=== PATIENT | female | born 1990 | race Caucasian/White ===

== ENCOUNTER 2019-09-03 13:07 | Outpatient (CLI) | payer SELFPAY ==
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
== END 2019-09-03 13:08 | disposition home or self-care (01) ==
LOC: RAD 13:10
PROVIDERS: PCP Family Medicine; Visit Provider Thoracic Surgery (Cardiothoracic Vascular Surgery)
DX: M79.606 Pain in leg, unspecified (principal)
CPT/HCPCS: 93970

== ENCOUNTER 2020-02-11 06:09 | Day surgery (SDC) | payer SELFPAY ==
[2020-02-11 05:57] VITALS: BP 118/85; PULSE 86; RESP 18; TEMP 36.4; O2SAT 100
[2020-02-11 06:19] VITALS: BMI 24.1
[2020-02-11] MEDS: diazePAM 5 mg Tablet 10 MG PO (06:48)
[2020-02-11 08:57] VITALS: BP 119/84; PULSE 85; RESP 18; TEMP 36.7; O2SAT 100
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
== END 2020-02-11 09:03 | disposition home or self-care (01) ==
PROVIDERS: PCP Family Medicine; Visit Provider Thoracic Surgery (Cardiothoracic Vascular Surgery)
DX: I87.2 Venous insufficiency (chronic) (peripheral) (principal); Z82.49 Family history of ischemic heart disease and other diseases of the circulatory system; F17.210 Nicotine dependence, cigarettes, uncomplicated
CPT/HCPCS: 12345; 36475; C1769; C1888; C1894; J7040; J7050

== ENCOUNTER 2020-02-18 10:16 | Outpatient (CLI) | payer SELFPAY ==
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
== END 2020-02-18 10:17 | disposition home or self-care (01) ==
PROVIDERS: PCP Family Medicine; Visit Provider Thoracic Surgery (Cardiothoracic Vascular Surgery)
DX: I83.90 Asymptomatic varicose veins of unspecified lower extremity (principal)
CPT/HCPCS: 93971

== ENCOUNTER 2022-09-14 09:34 | Outpatient (CLI) | payer MEDICAID, SELFPAY ==
--- NOTE | 2022-09-14 09:53 | MM_ITS ---
WS: [id number] DIAGNOSTIC BILATERAL DIGITAL BREAST TOMOSYNTHESIS MAMMOGRAPHY WITH CAD LEFT breast ultrasound, limited HISTORY: BREAST PAIN IN LEFT COMPARISON: None available. TECHNIQUE: Bilateral craniocaudad, mediolateral oblique, and mediolateral views are submitted with to mosynthesis and SM. Spot compression views LEFT CC and MLO. Computer aided detection utilized. Breast composition: The breasts are heterogeneously dense, which may obscure small masses. Dense fibr oglandular tissue in the posterior lateral LEFT breast seen best on the CC projection. There are no o ther areas of suspicious finding or calcification. LEFT breast ultrasound, limited. Ultrasound is directed to the area of pain in the upper outer quadrant and also from 1-4 o'clock. Den se fibroglandular tissue but no mass or shadowing. MM/[place] [id number] IMPRESSION: BI-RADS: 2-Benign FOLLOW UP: 1 Year Follow-up
== END 2022-09-14 09:35 | disposition home or self-care (01) ==
LOC: RAD 09:43
PROVIDERS: Visit Provider Registered Nurse
DX: N64.4 Mastodynia (principal); R92.2 Inconclusive mammogram
CPT/HCPCS: 76642; 77062; G0279

== ENCOUNTER → 2024-06-05 15:34 | Outpatient (BNVA) | payer MEDICAID, SELFPAY | PROVIDERS: Visit Provider Nurse Practitioner Women's Health | DX: Z01.419 Encounter for gynecological examination (general) (routine) without abnormal findings (principal) | CPT/HCPCS: 87624 ==

== ENCOUNTER → 2024-06-19 11:21 | Outpatient (BNVA) | payer MEDICAID, SELFPAY | PROVIDERS: Visit Provider Nurse Practitioner Women's Health | DX: D25.2 Subserosal leiomyoma of uterus (principal); R10.2 Pelvic and perineal pain | CPT/HCPCS: 76830 ==

== ENCOUNTER 2025-05-31 17:40 | Emergency (ER) | payer MEDICAID, SELFPAY ==
--- OUTSIDE RECORDS SUMMARY | 2025-05-24 06:09 | XMS_ITS | Encounter Summary ---
Author Organization [facility] Address [address] [place] [address] Care Team Providers [employer] Name Role Phone Talita Gutiérrez MD Primary Care Provider [phone] Reason for Visit * Reason Comments Palpitations Encounter Details Date Type Department Care Team (Late st Contact Info) Description 05/24/2025 6:09 AM DEVULCANIZER LOADER - 05/24/2025 8:32 AM [facility] Emergency [facility] Emergency Medicine [address] [place] [address] Cash Renee MD [address] [place] [phone] Palpitations (Primary Dx) Discharge Disposition: Home or Self Care Social History Tobacco Use Types Packs/Day Years Used Date Smoking Tobacco: Every Day Cigarettes 0.5 15 Smokeless Tobacco: Never Alcohol Use Standard Drinks/Week Comments No 0 (1 standard drink = 0.6 oz pur e alcohol) Food Insecurity Answer Date Recorded Do you find you are eating l ess than you should because you can t pay for food? No 05/24/2025 Transportation Needs Answer Date Record ed Have you gone without health care because you didn t have a way to get there? Or worry about transportation for future doctor visits, pickers material handlers medication, etc.? No 2024 Housing Stability Answer Date Recorded Do you worry you won t have a steady place to sleep or struggle to pay rent or mortgage? No 05/24/2025 Utility Needs Answer Date Recorded Do you have difficulty payin g for utility costs (electric, water or gas bills)? No 05/24/2025 Medication Needs Answer Date Recorded Have you skipped taking medi cation due to cost or worry you can t afford new medications? No 05/24/2025 Feeling Safe Answer Date Recorded Are you in a relationship wi th someone who hurts you emotionally and/or physically? No 05/24/2025 Comments No Sex and Gender Information Value Date Recorded Sex Assigned at Not on file Legal Sex Female 12:25 PM DEVULCANIZER LOADER Gender Identity Not on file Sexual Orientation Not on file documented as of this encounter Last Filed Vital Signs Vital Sign Reading Time Taken Comments Blood Pressure 110/70 05/24/2025 8:30 AM DEVULCANIZER LOADER Pulse 84 05/24/2025 8:30 AM DEVULCANIZER LOADER Temperature 36.4 C (97.6 F) 05/24/2025 6:09 AM DEVULCANIZER LOADER Respiratory Rate 16 05/24/2025 8:30 AM DEVULCANIZER LOADER Oxygen Saturation 99% 05/24/2025 8:30 AM DEVULCANIZER LOADER Inhaled Oxygen Concentration - - Weight 57.2 kg (126 lb 3.2 oz) 05/24/2025 6:09 A M DEVULCANIZER LOADER Height 165.1 cm (5' 5 ) 05/24/2025 6:09 AM DEVULCANIZER LOADER Body Mass Index 21 05/24/2025 6:09 AM DEVULCANIZER LOADER documented in this encounter Discharge Instructions * Discharge Instructions* Cash Renee MD - 05/24/2025 8:26 AM DEVULCANIZER LOADER You are seen in the ER today for palpitations. The exact cause of your symptoms cannot be known at this time however based on history physical exam labs and cardiac monitoring we see nothing life-threatening or conditions that require intervention at this time. I recommend follow-up with your PCP as further workup will be needed. If you develop shortness of breath chest pain lightheadedness, dizziness or fainting please return to the ER for further treatment evaluation. LCANIZER LOADER * Attachments The following attachments cannot be sent through Care Everywhere. * Cardiac Arrhythmia ([place]orese) * Palpitations ([place]orese) documented in this encounter Medications at Time of Discharge ALPRAZolam (Xanax) 0.5 mg tabletIndications :Anxiety state Take 1 Tablet (0.5 mg) by mouth 1 time daily as needed for Anxiety. 30 Tablet 05/27/2025 hydrOXYzine HCL (ATARAX) 10 mg tabletIndications :Anxiety state Take 1 Tablet (10 mg) by mouth 3 times daily as needed for Itching, Anxiety or Insomnia. 90 Tablet 1 05/23/2025 atenoloL (TENORMIN) 25 mg tablet Take 1 Tablet (25 mg) by mouth 2 times daily. 60 Tablet 05/22/2025 ondansetron (ZOFRAN ODT) 4 mg Tablet, Rapid Dissolve Take 1 Tablet (4 mg) by mouth every 8 hours as needed for Nausea/Emesis. Dissolve tablet on top of tongue, then swallow with saliva. 30 Tablet 1 05/16/2025 cefdinir (OMNICEF) 300 mg capsuleIndication s:Upper respiratory tract infection, unspecified type Take 1 Capsule (300 mg) by mouth every 12 hours for 10 days. 20 Capsule 05/16/2025 documented as of this encounter ED Notes * Lala Del Castillo RN - 05/24/2025 7:22 AM CST Rounded on patient to start IV. Patient requesting to use restroom. Patient stating she feels nauseated. Patient otherwise resting in bed with no other complaints. LCANIZER LOADER * Sonia Gandhi RN - 05/24/2025 6:18 AM CST Patient arrives POV ambulatory for c/o intermittent palpitations times 2 weeks. Patient has been seen in ED and by PCP. PCP started patient on 10mg daily of Hydroxyzine yesterday. Patient thinks atenolol is more beneficial but experiencing facial flushing with full dose. PCP wants patient to stop atenolol and try Hydroxyzine at this time. Patient afebrile, even and unlabored respirations, EKG performed by RT during triage. LCANIZER LOADER LCANIZER LOADER LCANIZER LOADER * Alexus Espinoza RCP - 05/24/2025 6:06 AM CST EKG completed. Results given to Dr. Vasques and scanned into Epic. LCANIZER LOADER * Cash Renee MD - 05/24/2025 6:02 AM CSTAssociated Order(s): EKG 12 lead 05/24/25 6:52 AM HISTORY OF PRESENT ILLNESS History of Present Illness This is a 34-year-old female presenting with palpitations. She has been experiencing intermittent episodes of tachycardia for the past 2 weeks, accompanied bynausea and general malaise. These episodes are particularly disruptive at night, often preventing her from sleeping. The duration of these episodes varies, with some lasting throughout the night. Shereports that her most recent episode occurred just prior to her arrival at the ER and resolved spontaneously after urination. She also reports low-grade fevers, chills, and tremors, even in the absence of cold exposure. Her highest recorded temperature was 100.2 degrees Fahrenheit. She did not haveany palpitations before 2 weeks ago. She recalls an illness approximately 3 weeks ago, from which she has not fully recovered. Her current symptoms began 2 weeks ago, following a brief period of improvement. She has not undergone Zio patch or Holter monitor testing but is scheduled for a monitor placement on Tuesday. She is requesting a prescription for nausea medication as Zofran has not been effective for her. She is also seeking advice on how to manage her symptoms, as they are significantly impacting her quality of life. She reports difficulty eating and subsequent weight loss. She is considering trying a different anxiety medication and expresses concern about potential addiction. She reports feeling mentally overwhelmed and physically unwell and is fearful of future syncopal episodes. She was prescribed hydroxyzine, which she believes exacerbated her symptoms. She was previously prescribedatenolol by Dr. Gonzales, which initially provided relief but was discontinued due to an adverse reaction characterized by facial flushing and itching. PAST MEDICAL HISTORY REVIEWED MEDICAL: Patient has a past medical history of Calculus of kidney, Depression, DIMPLE (generalized anxiety disorder), Headache, and Patient denies relevant medical history. SURGICAL: Patient has a past surgical history that includes tubal ligation; section; surgical other;pr rpr aa hernia 1st < 3 cm reducible (N/A, 01/11/2023); and breast augmentation. ALLERGIES Patient has no known allergies. PHYSICAL EXAM INITIAL VS BP: (!) 134/92 (05/24/25608), Heart Rate: 87 bpm (05/24/25608), Resp: 16 (05/24/25608), Pulse: 60 (05/24/25699), Temp: 97.6 ??F (36.4 ??C) (05/24/25608), Temp src: Tympanic (05/24/25608),SpO2: 100 % (05/24/25608), Height: 5' 5 (165.1 cm) (05/24/25608), Weight: 57.2 kg (126 lb 3.2 oz) (05/24/25608), BMI (Calculated): 20.98 (05/24/25608) Patient's last menstrual period was 05/13/2025 (exact date). Blood pressure 116/81, pulse 85, temperature 97.6 ??F (36.4 ??C), temperature source Tympanic, resp. rate 16, height 5' 5 (1.651 m), weight 57.2 kg (126 lb 3.2 oz), last menstrual period 05/13/2025,SpO2 99%, not currently . Physical Exam Constitutional: General: She is not in acute distress. Appearance: Normal appearance. She is normal weight. She is not ill-appearing, toxic-appearing or diaphoretic. HENT: Mouth/Throat: Mouth: Mucous membranes are moist. Pharynx: Oropharynx is clear. Eyes: General: No scleral icterus. Conjunctiva/sclera: Conjunctivae normal. Cardiovascular: Rate and Rhythm: Normal rate and regular rhythm. Pulses: Normal pulses. Heart sounds: Normal heart sounds. No murmur heard. No friction rub. No gallop. Pulmonary: Effort: Pulmonary effort is normal. Breath sounds: Normal breath sounds. No wheezing, rhonchi or rales. Musculoskeletal: General: Normal range of motion. Cervical back: Normal range of motion. Skin: General: Skin is warm and dry. Capillary Refill: Capillary refill takes less than 2 seconds. Coloration: Skin is not pale. Findings: No erythema or rash. Neurological: General: No focal deficit present. Mental Status: She is alert and oriented to person, place, and time. Psychiatric: Mood and Affect: Mood normal. Behavior: Behavior normal. Physical Exam Constitutional: No acute distress Cardiovascular: Heart rate consistent, no abnormalities observed on monitor DIAGNOSTICS LAB: CBC WITH DIFFERENTIAL - Abnormal Result Value WBC 7.9 RBC 4.42 HEMOGLOBIN 13.9 HEMATOCRIT 40.3 MCV 91.2 MCH 31.4 MCHC 34.5 RDW 12.8 RDW-STDEV 42.8 PLATELETS 183 MPV 11.3 NEUTROPHILS 74 (*) LYMPHOCYTES 18 (*) MONOCYTES 6 EOSINOPHILS 1 BASOPHILS 1 IMMATURE GRANULOCYTES 0 NEUTROPHIL ABSOLUTE 5.87 LYMPHOCYTE ABSOLUTE 1.44 MONOCYTE ABSOLUTE 0.47 (*) EOSINOPHIL ABSOLUTE 0.08 BASOPHILS ABSOLUTE 0.04 IMMATURE GRANULOCYTES ABSOLUTE 0.02 COMPREHENSIVE METABOLIC PANEL - Abnormal SODIUM 142 POTASSIUM 4.1 CHLORIDE 107 CO2 23 CALCIUM 9.0 BUN 6 CREATININE 0.66 GLUCOSE 82 TOTAL PROTEIN 6.3 (*) ALBUMIN 4.3 BILIRUBIN TOTAL 0.6 ALKALINE PHOSPHATASE 41 AST 16 ALT 8 GFR >60 ANION GAP 12 MAGNESIUM LEVEL - Normal MAGNESIUM 1.8 TROPONIN BASELINE, 5TH GEN - Normal TROPONIN T, BASELINE 5TH GEN <6 TROPONIN 2 HR, 5TH GEN RADIOLOGY: No orders to display EKG: Results Laboratory Studies Lab work is normal. Results independently interpreted by Cash Renee MD PROCEDURES EKG 12 lead Date/Time: 05/24/2025 6:52 AM Performed by: Cash Renee MD Authorized by: Cash Renee MD ECG interpreted by ED Physician in the absence of a supervisor rocket propellant plant: yes Rate: ECG rate assessment: age appropriate Rhythm: Rhythm Origin: sinus Rhythm morphology: narrow Nettie: QRS axis: Normal Intervals: normal QRSTT: QRSTT changes: No MEDICAL DECISION MAKING AND PLAN OF CARE Assessment & Plan Initial Assessment: 34-year-old female presenting with palpitations, nausea, and low-grade fever for 2 weeks. Symptoms include sporadic episodes of rapid heart rate, feeling ill, and chills. Differential Diagnosis: - Dysrhythmia: Potential cause of palpitations. Zio patch for further evaluation. - Viral infection: Possible cause of prolonged illness. No immediate intervention. - Anxiety: Possible contributor to symptoms. Consult primary care for alternative medications. ED Course: - Reviewed monitor data from past 20-30 minutes; no significant changes in heart rate or abnormalities. - Labs reviewed; results within normal limits. Final Assessment: Reviewed monitor data and labs; no significant findings. Symptoms suggest potential dysrhythmia, viral infection, or anxiety. No immediate interventions available. Clinical Impression: - Palpitations - Nausea - Low-grade fever Disposition: - Discharge: Home, advised to continue with Zio patch for further evaluation. Consult primary care for alternative anxiety medications. Try hydroxyzine during the day at half the dose. Return precautions given. - Follow-Up: Consult primary care for alternative anxiety medications. Continue with Zio patch. Patient Education: Advised on the use of Zio patch and potential causes of symptoms. Informed about the lack of immediate interventions and the importance of follow-up with primary care. Medical Decision Making Amount and/or Complexity of Data Reviewed Labs: ordered. ECG/medicine tests: ordered and independent interpretation performed. Risk Prescription drug management. Clinical Scoring & Consults Medications Administered During the ED Stay from 05/24/2025602 to 05/24/2025 0833 Date/Time Order Dose Route Action 05/24/2025 0758 DEVULCANIZER LOADER sodium chloride 0.9 % bolus solution 1,000 mL 0 mL IV Stopped 05/24/2025 0728 DEVULCANIZER LOADER sodium chloride 0.9 % bolus solution 1,000 mL 1,000 mL IV New Bag 05/24/2025 0727 DEVULCANIZER LOADER ondansetron (ZOFRAN) 4 mg/2 mL injection 4 mg 4 mg IV Given . New Prescriptions for this Encounter LAST VS BP: 116/81 (05/24/25814), Heart Rate: 86 bpm (05/24/25814), Resp: 16 (05/24/25814), Pulse: 85(05/24/25814), Temp: 97.6 ??F (36.4 ??C) (05/24/25608), Temp src: Tympanic (05/24/25608), SpO2: 99 % (05/24/25 0815) CLINICAL IMPRESSION Diagnosis Diagnosis Comment Added By Time Added Palpitations [R00.2] Cash Renee MD 05/24/2025 8:24 AM DISPOSITION, EDUCATION AND MEDICATION RECONCILIATION Medications reconciled. See after visit summary for patient education on discharged patients. ED Disposition ED Disposition Discharge Condition Stable User Cash Renee MD Date/Time TueMay 24, 2025 8:23 AM Comment -- LCANIZER LOADER documented in this encounter Miscellaneous Notes * Gen AI JB - GENERATIVE AI HANDOFF NOTE - 05/24/2025 9:23 AM CST ## ER_course: ## # DIAGNOSIS: Palpitations, with potential causes including dysrhythmia, viral infection, or anxiety. The patient, a 34-year-old female, presented with intermittent palpitations, nausea, and low-grade fever for the past 2 weeks. She experienced episodes of tachycardia, nausea, and general malaise, particularly disruptive at night. The patient reported a recent illness 3 weeks ago, from which she has not fully recovered. She was previously on atenolol, which was discontinued due to facial flushing and itching, and was started on hydroxyzine by her PCP, which she believes exacerbated her symptoms. # During the ER visit, the following abnormalities were noted: Elevated neutrophils (74%) and low lymphocytes (18%) in the CBC. The comprehensive metabolic panel showed a slightly low total protein (6.3). EKG showed a normal sinus rhythm with no significant changes. # Medications administered included ondansetron (Zofran) 4 mg IV for nausea and sodium chloride 0.9% bolus solution 1,000 mL IV. # Differential diagnoses at discharge included dysrhythmia, viral infection, and anxiety. ## Follow_up_orders: ## # The patient is advised to continue with the Zio patch for further evaluation of potential dysrhythmia. # Consult with primary care for alternative anxiety medications, as hydroxyzine may not be suitable. # Try hydroxyzine during the day at half the dose. # Return precautions were given, and the importance of follow-up with primary care was emphasized. ## Home_Situation: ## # No specific factors impairing follow-up care were noted in the ER documentation. Electronically signed by Interface, Mat Bach Loss Prevention Operations Manager Incoming at 05/24/2025 9:28 AM DEVULCANIZER LOADER documented in this encounter Plan of Treatment Not on file documented as of this encounter Procedures Procedure Name Priority Date/Time Associated Diagnosis Comments TROPONIN BASELINE, 5TH GEN Stat 05/24/2025 7:26 AM DEVULCANIZER LOADER CBC WITH DIFFERENTIAL Stat 05/24/2025 7:26 AM DEVULCANIZER LOADER MAGNESIUM LEVEL Stat 05/24/2025 7:26 AM DEVULCANIZER LOADER COMPREHENSIVE METABOLIC PANEL Stat 05/24/2025 7:26 AM DEVULCANIZER LOADER EKG 12-LEAD Stat 05/24/2025 6:52 AM DEVULCANIZER LOADER documented in this encounter Results * TROPONIN BASELINE, 5TH GEN (05/24/2025 7:26 AM DEVULCANIZER LOADER) TROPONIN T, BASELINE 5TH GEN <6 <=10 ng/L 05/24/2025 8:03 AM DEVULCANIZER LOADER [facility] Blood Venipuncture / Unknown 05/24/2025 7:26 AM DEVULCANIZER LOADER 05/24/2025 7:38 AM DEVULCANIZER LOADER Narrative [facility] - 05/24/2025 8:03 AM DEVULCANIZER LOADER Troponin Undetectable us Cash Renee MD CHEMISTRY ORDERABLES Final Result [facility] CLIA # [id number] [address] [place] [id number] * MAGNESIUM LEVEL (05/24/2025 7:26 AM DEVULCANIZER LOADER) MAGNESIUM 1.8 1.6 - 2.6 mg/dL 05/24/2025 8:03 AM DEVULCANIZER LOADER [facility] Blood Venipuncture / Unknown 05/24/2025 7:26 AM DEVULCANIZER LOADER 05/24/2025 7:38 AM DEVULCANIZER LOADER Cash Renee MD CHEMISTRY ORDERABLES Final Result [facility] CLIA # [id number] [address] [address] * (ABNORMAL) COMPREHENSIVE METABOLIC PANEL (05/24/2025 7:26 AM DEVULCANIZER LOADER) SODIUM 142 136 - 145 mmol/L 05/24/2025 8:03 AM [facility] POTASSIUM 4.1 3.5 - 5.1 mmol/L 05/24/2025 8:03 AM [facility] CHLORIDE 107 98 - 107 mmol/L 05/24/2025 8:03 AM [facility] CO2 23 22 - 29 mmol/L 05/24/2025 8:03 AM [facility] CALCIUM 9.0 8.6 - 10.0 mg/dL 05/24/2025 8:03 AM [facility] BUN 6 6 - 20 mg/dL 05/24/2025 8:03 AM [facility] CREATININE 0.66 0.51 - 0.95 mg/dL 05/24/2025 8:03 AM [facility] GLUCOSE 82 74 - 99 mg/dL 05/24/2025 8:03 AM [facility] TOTAL PROTEIN 6.3(L) 6.6 - 8.7 g/dL 05/24/2025 8:03 AM [facility] ALBUMIN 4.3 3.5 - 5.2 g/dL 05/24/2025 8:03 AM [facility] BILIRUBIN TOTAL 0.6 0.0 - 1.2 mg/dL 05/24/2025 8:03 AM [facility] ALKALINE PHOSPHATASE 41 35 - 104 U/L 05/24/2025 8:03 AM [facility] AST 16 0 - 35 U/L 05/24/2025 8:03 AM [facility] ALT 8 0 - 35 U/L 05/24/2025 8:03 AM [facility] GFR >60 >=60 mL/min/1.7 3 sq meter 05/24/2025 8:03 AM [facility] Comment:eGFR calculated with 2020 CKD-EPI equation. Vegetarian diet, extremely high or low muscle mass, and may affect results. Cystatin C with Glomerular Filtration Rate is a suitable alternative for these patients. ANION GAP 12 5 - 20 mmol/L 05/24/2025 8:03 AM [facility] Blood Venipuncture / Unknown 05/24/2025 7:26 AM DEVULCANIZER LOADER 05/24/2025 7:38 AM DEVULCANIZER LOADER Cash Renee MD CHEMISTRY ORDERABLES Final Result [facility] CLIA # [id number] [address] [place] [address] * (ABNORMAL) CBC WITH DIFFERENTIAL (05/24/2025 7:26 AM DEVULCANIZER LOADER) WBC 7.9 4.0 - 10.0 K/uL 05/24/2025 7:43 AM [facility] RBC 4.42 3.93 - 5.22 M/uL 05/24/2025 7:43 AM [facility] HEMOGLOBIN 13.9 11.2 - 15.7 g/dL 05/24/2025 7:43 AM [facility] HEMATOCRIT 40.3 34.1 - 44.9 % 05/24/2025 7:43 AM [facility] MCV 91.2 79.4 - 94.8 fL 05/24/2025 7:43 AM [facility] MCH 31.4 25.6 - 32.2 pg 05/24/2025 7:43 AM [facility] MCHC 34.5 32.2 - 35.5 g/dL 05/24/2025 7:43 AM [facility] RDW 12.8 11.0 - 14.5 % 05/24/2025 7:43 AM [facility] RDW-STDEV 42.8 36.9 - 56.9 fL 05/24/2025 7:43 AM [facility] PLATELETS 183 163 - 337 K/uL 05/24/2025 7:43 AM [facility] MPV 11.3 10.0 - 14.8 fL 05/24/2025 7:43 AM [facility] NEUTROPHILS 74(H) 34 - 71 % 05/24/2025 7:43 AM [facility] LYMPHOCYTES 18(L) 19 - 52 % 05/24/2025 7:43 AM [facility] MONOCYTES 6 5 - 13 % 05/24/2025 7:43 AM [facility] EOSINOPHILS 1 1 - 6 % 05/24/2025 7:43 AM [facility] BASOPHILS 1 0 - 1 % 05/24/2025 7:43 AM [facility] IMMATURE GRANULOCYTES 0 % 05/24/2025 7:43 AM [facility] NEUTROPHIL ABSOLUTE 5.87 1.56 - 6.13 K/uL 05/24/2025 7:43 AM [facility] LYMPHOCYTE ABSOLUTE 1.44 1.20 - 3.40 K/uL 05/24/2025 7:43 AM [facility] MONOCYTE ABSOLUTE 0.47(H) 0.24 - 0.36 K/uL 05/24/2025 7:43 AM [facility] EOSINOPHIL ABSOLUTE 0.08 0.04 - 0.36 K/uL 05/24/2025 7:43 AM [facility] BASOPHILS ABSOLUTE 0.04 0.01 - 0.08 K/uL 05/24/2025 7:43 AM [facility] IMMATURE GRANULOCYTES ABSOLUTE 0.02 K/uL 05/24/2025 7:43 AM [facility] Blood Venipuncture / Unknown 05/24/2025 7:26 AM DEVULCANIZER LOADER 05/24/2025 7:38 AM DEVULCANIZER LOADER Cash Renee MD HEMATOLOGY ORDERABLES Final Result [facility] CLIA # [id number] [address] [place] [id number] * EKG 12 lead (05/24/2025 6:52 AM DEVULCANIZER LOADER) Narrative Cash Renee MD - 05/24/2025 6:52 AM DEVULCANIZER LOADER Cash Renee MD 05/24/2025 8:33 AM EKG 12 lead Date/Time: 05/24/2025 6:52 AM Performed by: Cash Renee MD Authorized by: Cash Renee MD ECG interpreted by ED Physician in the absence of a supervisor rocket propellant plant: yes Rate: ECG rate assessment: age appropriate Rhythm: Rhythm Origin: sinus Rhythm morphology: narrow Nettie: QRS axis: Normal Intervals: normal QRSTT: QRSTT changes: No Cash Renee MD ECG ORDERABLES Final Result documented in this encounter Visit Diagnoses Diagnosis Palpitations- Primary documented in this encounter Administered Medications Inactive Administered Medications - up to 3 most recent administrations Medication Order MAR Action Action Date Dose Rate Site ondansetron (ZOFRAN) 4 mg/2 mL injection 4 mg 4 mg, IV, ONE TIME ONLY, 1 dose, On Tue05/24/25 at 0730, Routine Given 05/24/2025 7:27 AM DEVULCANIZER LOADER 4 mg sodium chloride 0.9 % bolus solution 1,000 mL 1,000 mL, IV, ONE TIME ONLY, 1 dose, On Tue05/24/25 at 0715, at 2,000 mL/hr, Administer over 30 Minutes, Routine New Bag 05/24/2025 7:28 AM DEVULCANIZER LOADER 1,000 mL 2000 mL/hr documented in this encounter Active and Recently Administered Medications Times are shown in DEVULCANIZER LOADER. Scheduled Medication Order 05/22/2025 05/23/2025 05/24/2025 ondansetron (ZOFRAN) 4 mg/2 mL injection 4 mg (COMPLETED) 4 mg, IV, ONE TIME ONLY, 1 dose, On Tue05/24/25 at 0730, Routine 0727 (Given - Provid er: Lala Del Castillo RN) sodium chloride 0.9 % bolus solution 1,000 mL (COMPLETED) 1,000 mL, IV, ONE TIME ONLY, 1 dose, On Tue05/24/25 at 0715, at 2,000 mL/hr, Administer over 30 Minutes, Routine 0728 (New Bag - Prov ider: Lala Del Castillo RN)[id number] (Stopped - Provider: Lala Del Castillo RN) documented in this encounter Care Teams [employer] Relationship Specialty Start Date End Date Talita Gutiérrez MD [address] [address] PCP - General Family Practice 01/10/24 documented as of this encounter
--- OUTSIDE RECORDS SUMMARY | 2025-05-27 14:57 | XMS_ITS | Encounter Summary ---
Author Organization [facility] Address [address] [place] [address] Care Team Providers Care Branch Logistics Supervisor Name Role Phone Talita Gutiérrez MD Primary Care Provider [phone] Reason for Referral * Cardiology Testing (Routine) - Closed Specialty Diagnoses / Procedures Referred By Contac t Referred To Contact Respiratory Therapy Diagnoses Syncope, unspecified syncope type Procedures CARDIAC EVENT MONITOR Poly Dorman FNP [address] [place] [address] Phone: tel: fax: [facility] Respiratory Therapy Services [place] [address] [address] [place] [address] Phone: tel: fax: Referral ID Status Reason Start Date Expiration Date V isits Requested Visits Authorized [id number] Closed [facility] CTS to Schedule 05/21/2025 06/21/2026 1 1 Y EQUIPMENT SALES ASSOCIATE Reason for Visit * Cardiology Testing (Routine) - Closed Specialty Diagnoses / Procedures Referred By Contac t Referred To Contact Respiratory Therapy Diagnoses Syncope, unspecified syncope type Procedures CARDIAC EVENT MONITOR Poly Dorman FNP [address] [place] [address] Phone: tel: fax: [facility] Res[facility] [place] [address] [place] [address] Phone: tel: fax: Referral ID Status Reason Start Date Expiration Date V isits Requested Visits Authorized [id number] Closed [facility] CTS to Schedule 05/21/2025 06/21/2026 1 1 Encounter Details Date Type Department Care Team (Latest Contact Info) Description 05/27/2025 2:57 PM HEAVY EQUIPMENT SALES ASSOCIATE - 05/27/2025 11:59 PM HEAVY EQUIPMENT SALES ASSOCIATE Hospital Encounter [facility] Res[facility] [place] [address] [place] [phone] Poly Dorman, HUMANE AGENT [address] [place] [phone] Discharge Disposition: Home or Self Care Social [...] worry about transportation for future doctor visits, cotton picker operator medication, etc.? No 2024 Housing Stability Answer [...] on file Legal Sex Female 12:25 PM HEAVY EQUIPMENT SALES ASSOCIATE Gender Identity Not on file Sexual Orientation Not on file documented as of this encounter Medications at Time of Discharge ALPRAZolam (Xanax) 0.5 mg tabletIndication s:Anxiety state Take 1 Tablet (0.5 mg) by mouth 1 time daily as needed for Anxiety. 30 Tablet 05/27/2025 hydrOXYzine HCL (ATARAX) 10 mg tabletIndication s:Anxiety state Take 1 Tablet (10 mg) by mouth 3 times daily as needed for Itching, Anxiety or Insomnia. 90 Tablet 1 05/23/2025 atenoloL (TENORMIN) 25 mg tablet Take 1 Tablet (25 mg) by mouth 2 times daily. 60 Tablet 05/22/2025 06/21/2025 ondansetron (ZOFRAN ODT) 4 mg Tablet, Rapid Dissolve Take 1 Tablet (4 mg) by mouth every 8 hours as needed for Nausea/Emesis. Dissolve tablet on top of tongue, then swallow with saliva. 30 Tablet 1 05/16/2025 documented as of this encounter Progress Notes * Mayuri Romano RCP - 05/27/2025 3:00 PM CST Event monitor and instructions given to the patient. The event monitor was registered to [employer], and set up was successful. The patch was applied to prepped skin without difficulty. Recording a symptom, charging the monitor/sensor and changing the patch was demonstrated. Craig number was given for any equipment needs. The patient understands to mail monitor back in 14 days. Results will be furnished to the ordering provider. SN: [id number] Y EQUIPMENT SALES ASSOCIATE documented in this encounter Plan of Treatment Not on file documented as of this encounter Visit Diagnoses Diagnosis Syncope, unspecified syncope type documented in this encounter Care Teams Branch Logistics Supervisor Relationship Specialty Start Date End Date Talita Gutiérrez MD [address] [address] PCP - General Family Practice 01/10/24 documented as of this encounter
--- OUTSIDE RECORDS SUMMARY | 2025-05-30 14:00 | XMS_ITS | Encounter Summary ---
Author Organization [facility] Address [address] [place] [address] Care Team Providers Care Flap Curer Name Role Phone Talita Gutiérrez MD Primary Care Provider Reason for Visit * Reason Comments Follow Up Nausea, fever, rapid heart rate Nausea Fever Encounter Details Date Type Department Care Team (Late st Contact Info) Description 05/30/2025 2:00 PM LIGHT AIR DEFENSE ARTILLERY CREWMEMBER Office Visit [facility] Family Medicine [address] [place] [phone] Poly Dorman, [facility] [address] [facility] [place] [address] Situational depression (Primary Dx) Social History Tobacco Use Types Packs/Day Years Used Date Smoking Tobacco: Every Day Cigarettes 0.5 15 Smokeless Tobacco: Never Tobacco Cessation:Ready to Q uit: No; Counseling Given: Yes Alcohol Use Standard Drinks/Week Comments No 0 [...] worry about transportation for future doctor visits, pick pulling machine operator medication, etc.? No 2024 Housing Stability [...] on file Legal Sex Female 12:25 PM LIGHT AIR DEFENSE ARTILLERY CREWMEMBER Gender Identity Not on file Sexual Orientation Not on file documented as of this encounter Last Filed Vital Signs Vital Sign Reading Time Taken Comments Blood Pressure 130/84 05/30/2025 2:27 PM LIGHT AIR DEFENSE ARTILLERY CREWMEMBER Pulse 98 05/30/2025 2:27 PM LIGHT AIR DEFENSE ARTILLERY CREWMEMBER Temperature 37.6 C (99.6 F) 05/30/2025 2:27 PM LIGHT AIR DEFENSE ARTILLERY CREWMEMBER Respiratory Rate 16 05/30/2025 2:27 PM LIGHT AIR DEFENSE ARTILLERY CREWMEMBER Oxygen Saturation 98% 05/30/2025 2:27 PM LIGHT AIR DEFENSE ARTILLERY CREWMEMBER Inhaled Oxygen Concentration - - Weight 56.6 kg (124 lb 12.8 oz) 05/30/2025 2:27 PM LIGHT AIR DEFENSE ARTILLERY CREWMEMBER Height 165.1 cm (5' 5 ) 05/30/2025 2:27 PM LIGHT AIR DEFENSE ARTILLERY CREWMEMBER Body Mass Index 20.77 05/30/2025 2:27 PM LIGHT AIR DEFENSE ARTILLERY CREWMEMBER documented in this encounter Plan of Treatment Not on file documented as of this encounter Visit Diagnoses Diagnosis Situational depression- Primary documented in this encounter Care Teams Flap Curer Relationship Specialty Start Date End Date Talita Gutiérrez MD [address] [facility] [address] [place] [address] PCP - General Family Practice 01/10/24 documented as of this encounter
--- OUTSIDE RECORDS SUMMARY | 2025-05-31 09:00 | XMS_ITS | Encounter Summary ---
Author Organization [facility] Address [address] [place] [address] Care Team Providers Care Returned Case Inspector Name Role Phone Talita Gutiérrez MD Primary Care Provider [phone] Reason for Referral * Radiology Services (Urgent) - Authorized Specialty Diagnoses / Procedures Referred By Contac t Referred To Contact Radiology Diagnoses Intermittent claudication Procedures US VENOUS DOPPLER LEG LEFT Poly Dorman FNP [address] [facility] [place] [address] Phone: tel: fax: [facility] Ultrasound [place] [address] [place] [address] Phone: tel: fax: Referral ID Status Reason Start Date Expiration Date V isits Requested Visits Authorized [id number] Authorized 05/31/2025 07/01/2026 1 1 SCIENTIST Reason for Visit * Reason Comments Pain Woke up during the n ight with kidney an back of left knee pain. Encounter Details Date Type Department Care Team (Late st Contact Info) Description 05/31/2025 9:00 AM LIFE SCIENTIST Office Visit [facility] Family Medicine [place] [place] [address] Poly Dorman FNP [address] [facility] [place] [address] Intermittent claudication (Primary Dx) Social History Tobacco Use Types [...] worry about transportation for future doctor visits, brain picker medication, etc.? No 2024 Housing Stability Answer [...] on file Legal Sex Female 12:25 PM LIFE SCIENTIST Gender Identity Not on file Sexual Orientation Not on file documented as of this encounter Last Filed Vital Signs Vital Sign Reading Time Taken Comments Blood Pressure 110/72 05/31/2025 8:59 AM LIFE SCIENTIST Pulse 99 05/31/2025 8:59 AM LIFE SCIENTIST Temperature 37.1 C (98.7 F) 05/31/2025 8:59 AM LIFE SCIENTIST Respiratory Rate 16 05/31/2025 8:59 AM LIFE SCIENTIST Oxygen Saturation 99% 05/31/2025 8:59 AM LIFE SCIENTIST Inhaled Oxygen Concentration - - Weight 56.5 kg (124 lb 9.6 oz) 05/31/2025 8:59 A M LIFE SCIENTIST Height 165.1 cm (5' 5 ) 05/31/2025 8:59 AM LIFE SCIENTIST Body Mass Index 20.73 05/31/2025 8:59 AM LIFE SCIENTIST documented in this encounter Plan of Treatment Scheduled Orders Name Type Priority Associated Diagnoses Orde r Schedule US VENOUS DOPPLER LEG LEFT Imaging Stat Intermittent claudication Expected: 05/31/2025, Expires: 05/31/2026 documented as of this encounter Visit Diagnoses Diagnosis Intermittent claudication- Primary Peripheral vascular disease, unspecified documented in this encounter Care Teams Returned Case Inspector Relationship Specialty Start Date End Date Talita Gutiérrez MD [address] [phone] PCP - General Family Practice 01/10/24 documented as of this encounter
--- OUTSIDE RECORDS SUMMARY | 2025-05-31 10:48 | XMS_ITS | Encounter Summary ---
Author Organization [facility] Address [address] [place] [address] Care Team Providers Care Museum Curator Name Role Phone Talita Gutiérrez MD Primary Care Provider [phone] Encounter Details Date Type Department Care Team (Late st Contact Info) Description 05/31/2025 10:48 AM [facility] Hospital Encounter [facility] Outpatient Laboratory Services [place] [address] [place] [phone] Ploy Dorman, [facility] [address] [place] [address] Arrived Social History Tobacco Use Types Packs/Day Years [...] worry about transportation for future doctor visits, hand picker medication, etc.? No 2024 Housing Stability [...] on file Legal Sex Female 12:25 PM SPONGE MAKER Gender Identity Not on file Sexual Orientation Not on file documented as of this encounter Plan of Treatment Not on file documented as of this encounter Visit Diagnoses Not on filedocumented in this encounter Care Teams Museum Curator Relationship Specialty Start Date End Date Talita Gutiérrez MD [address] [address] PCP - General Family Practice 01/10/24 documented as of this encounter
--- OUTSIDE RECORDS SUMMARY | 2025-05-31 17:49 | XMS_ITS | Encounter Summary ---
Author Organization [facility] Address [address] [place] [address] Care Team Providers Care Nursing Assistant Name Role Phone Juan Francisco Hernandez MD Primary Care Provider [phone] Encounter Details Date Type Department Care Team (Latest Contact Info) Description 06/02/2007 Outpatient [facility] [address] [place] [address] Connie Olivera, HEAD TURBINE OPERATOR [address] [place] [address] Unspecified Spontaneous without Mention of Complication (Primary Dx) Social History Tobacco Use Types Packs/Day Years Used Date Smoking Tobacco: Never Assessed Comments Unknown Sex and Gender Information Value Date Recorded Sex Assigned at Not on file Legal Sex Female 2:59 AM INTERFACE ANALYST Gender Identity Not on file Sexual Orientation Not on file documented as of this encounter Plan of Treatment Not on file documented as of this encounter Visit Diagnoses Diagnosis Unspecified spontaneous without mention of complication- Primary documented in this encounter Care Teams Nursing Assistant Relationship Specialty Start Date End Date Juan Francisco Hernandez MD [address] [place] [phone] PCP - General Family Practice 04/06/18 documented as of this encounter
--- OUTSIDE RECORDS SUMMARY | 2025-05-31 17:49 | XMS_ITS | Encounter Summary ---
Author Organization [facility] Address [address] [place] [address] Care Team Providers Care Lead Warehouse Associate Name Role Phone Juan Francisco Hernandez MD Primary Care Provider [phone] Encounter Details Date Type Department Care Team (Latest Contact Info) Description 10/18/2007 Outpatient Historical [facility] Family Medicine- [place] [address] [place] [phone] Ryley Dias NP NO ADDRESS ON FILE Routine Gynecological Examination Social History Tobacco Use Types Packs/Day Years Used Date Smoking Tobacco: Never Assessed Comments Unknown Sex and Gender Information Value Date Recorded Sex Assigned at Not on file Legal Sex Female 2:59 AM FRAME NAILER Gender Identity Not on file Sexual Orientation Not on file documented as of this encounter Plan of Treatment Not on file documented as of this encounter Procedures Procedure Name Priority Date/Time Associated Diagnosis Comments GC, GENITAL Routine 10/17/2007 2:50 PM CDT CHLAMYDIA, GENITAL Routine 10/17/2007 2: 50 PM CDT PATHOLOGY Routine 10/17/2007 6:07 AM CDT documented in this encounter Results * GC DNA AMPLIFICATION (10/17/2007 2:50 PM CDT) FINAL REPORT DNA Amplification Assay: negative for Neisseria gonorrhoeae This procedure is approved for testing only on endocervical and male urethral swab specimens and male urine. The use of specimens from any other body site has not been validated. INTERFACE SYSTEM Specimen from genital system (specimen) 10/17/2007 2:50 PM CDT 10/19/2007 2:29 PM CDT Ryley Dias MICROBIOLOGY - GENERAL ORDER FABIEN Final Result Performing Organization Address [facility] Phone Number INTERFACE SYSTEM Refer to clinic/hospital department * CHLAMYDIA DNA AMPLIFICATION (10/17/2007 2:50 PM CDT) Pathologist [facility] FINAL REPORT DNA Amplification Assay: negative for Chlamydia trachomatis * This procedure is approved for testing only on endocervical and male urethral swab specimens and urine. The use of specimens from any other body site has not been validated. INTERFACE SYSTEM Specimen from genital system (specimen) 10/17/2007 2:50 PM CDT 10/19/2007 2:29 PM CDT us Ryley Dias NP MICROBIOLOGY - GENERAL ORDER FABIEN Final Result Performing Organization Address [facility] Phone Number INTERFACE SYSTEM Refer to clinic/hospital department * PATHOLOGY (10/17/2007 6:07 AM CDT) PATHOLOGY/CY TOLOGY REPORT [facility] Anatomic Pathology Dept [facility] [address] Patient: MARTI STEWART Accn No: [id number] Collected: 10/17/2007 6:07:00 AM CYTOLOGY CHIEF DEPUTY CLERK/BAILIFF FINAL REPORT - - FIRE PREVENTION CAPTAIN PAP History Specimen Source: Endocervical/Cervic al LMP: 09/23/07 Last Pap Date: 2005.31 Specimen Adequacy Satisfactory for interpretation. The smear shows sufficient numbers of endocervical or metaplastic cells. Diagnosis NEGATIVE FOR INTRAEPITHELIAL LESION OR MALIGNANCY. Shift in ida suggestive of bacterial vaginosis. Poly Packer And Heat Sealer SFF 10/19/07 Completed by: Rosie Schaffer (ASCP) (Electronically signed by) 10/19/07 Additional Diagnosis Inflammatory changes present Comment Routine follow-up is suggested. Important Info About Pap Smears HPV Testing off the Thin Prep vial can be done as a means of further evaluating a Thin Prep Report. For information about ordering the HPV test, phone Cytology at . Treatment or follow-up recommendations (if any) that are considered within this report are based upon general recommendations as contained in 2001 Consensus Guidelines For Cervical Cytological Abnormalities LUIS ANTONIO: November 08, 2001, and are provided as a general guideline rather than as a specific recommendation. Final decisions about the most appropriate treatment and follow-up should be made on an individualized basis by the treating physician in consultation with his/her patient. INTERFACE SYSTEM 10/17/2007 6:07 AM CDT Ryley Dias NP PATHOLOGY/CYTOLOGY ORDERABLE S Final Result INTERFACE SYSTEM Refer to clinic/hospital department documented in this encounter Visit Diagnoses Diagnosis Routine gynecological examination documented in this encounter Care Teams Lead Warehouse Associate Relationship Specialty Start Date End Date Juan Francisco Hernandez MD [address] [place] [address] PCP - General Family Practice 04/06/18 documented as of this encounter
--- OUTSIDE RECORDS SUMMARY | 2025-05-31 17:49 | XMS_ITS | Encounter Summary ---
Author Organization [facility] Address [address] [place] [address] Care Team Providers Care Teacher Of The Handicapped Name Role Phone Juan Francisco Hernandez MD Primary Care Provider [phone] Encounter Details Date Type Department Care Team (Latest Contact Info) Description 04/28/2006 Outpatient [facility] Medicine [address] [address] Sarah Lee MD NO ADDRESS ON FILE Routine Gynecological Examination (Primary Dx); Unspecified Vaginitis and Vulvovaginitis; Unspecified Contraceptive Management Social History Tobacco Use Types Packs/Day Years Used Date Smoking Tobacco: Never Assessed Comments Unknown Sex and Gender Information Value Date Recorded Sex Assigned at Not on file Legal Sex Female 2:59 AM TOLL COLLECTOR SUPERVISOR Gender Identity Not on file Sexual Orientation Not on file documented as of this encounter Plan of Treatment Not on file documented as of this encounter Visit Diagnoses Diagnosis Routine gynecological examination- Primary Vaginitis and vulvovaginitis, unspecified Unspecified contraceptive management documented in this encounter Care Teams Teacher Of The Handicapped Relationship Specialty Start Date End Date Juan Francisco Hernandez MD [address] [address] PCP - General Family Practice 04/06/18 documented as of this encounter
--- OUTSIDE RECORDS SUMMARY | 2025-05-31 17:49 | XMS_ITS | Encounter Summary ---
Author Organization [facility] Address [address] [place] [address] Care Team Providers Care Hoseman Name Role Phone Juan Francisco Hernandez MD Primary Care Provider [phone] Encounter Details Date Type Department Care Team (Latest Contact Info) Description 03/28/2007 Outpatient Historical [facility] Family Medicine- [place] [address] [place] [phone] Mohamud Quinteros PA NO ADDRESS ON FILE Viral Infection (Primary Dx) Social History Tobacco Use Types Packs/Day Years Used Date Smoking Tobacco: Never Assessed Comments Unknown Sex and Gender Information Value Date Recorded Sex Assigned at Not on file Legal Sex Female 2:59 AM CARPET WEAVER Gender Identity Not on file Sexual Orientation Not on file documented as of this encounter Plan of Treatment Not on file documented as of this encounter Visit Diagnoses Diagnosis Unspecified viral infection, in conditions classified elsewhere and of unspecified site- Primary documented in this encounter Care Teams Hoseman Relationship Specialty Start Date End Date Juan Francisco Hernandez MD [address] [facility] [address] [place] [address] PCP - General Family Practice 04/06/18 documented as of this encounter
--- OUTSIDE RECORDS SUMMARY | 2025-05-31 17:50 | XMS_ITS | Encounter Summary ---
Author Organization [facility] Address [address] [place] [address] Care Team Providers Care Optometric Technician Name Role Phone Juan Francisco Hernandez MD Primary Care Provider [phone] Encounter Details Date Type Department Care Team (Latest Contact Info) Description 06/27/2006 Outpatient Historical [facility] Medicine [place] [address] [phone] Ryley Dias NP NO ADDRESS ON FILE Acute Sinusitis, Unspecified (Primary Dx); Unspecified Asthma Social History Tobacco Use Types Packs/Day Years Used Date Smoking Tobacco: Never Assessed Comments Unknown Sex and Gender Information Value Date Recorded Sex Assigned at Not on file Legal Sex Female 2:59 AM VICE PRESIDENT OF NURSING Gender Identity Not on file Sexual Orientation Not on file documented as of this encounter Plan of Treatment Not on file documented as of this encounter Visit Diagnoses Diagnosis Acute sinusitis, unspecified- Primary Unspecified asthma(493.90) Unspecified asthma documented in this encounter Care Teams Optometric Technician Relationship Specialty Start Date End Date Juan Francisco Hernandez MD [address] [phone] PCP - General Family Practice 04/06/18 documented as of this encounter
--- OUTSIDE RECORDS SUMMARY | 2025-05-31 17:50 | XMS_ITS | Encounter Summary ---
Author Organization [facility] Address [address] [place] [address] Care Team Providers Care Nail Cutter Name Role Phone Juan Francisco Hernandez MD Primary Care Provider [phone] Encounter Details Date Type Department Care Team (Latest Contact Info) Description 06/24/2006 Outpatient [facility] Medicine [address] [address] Ryley Dias NP NO ADDRESS ON FILE Acute Sinusitis, Unspecified (Primary Dx); Acute Bronchitis Social History Tobacco Use Types Packs/Day Years Used Date Smoking Tobacco: Never Assessed Comments Unknown Sex and Gender Information Value Date Recorded Sex Assigned at Not on file Legal Sex Female 2:59 AM TRANSMITTER ENGINEER IN CHARGE Gender Identity Not on file Sexual Orientation Not on file documented as of this encounter Plan of Treatment Not on file documented as of this encounter Visit Diagnoses Diagnosis Acute sinusitis, unspecified- Primary Acute bronchitis documented in this encounter Care Teams Nail Cutter Relationship Specialty Start Date End Date Juan Francisco Hernandez MD [address] [phone] PCP - General Family Practice 04/06/18 documented as of this encounter
--- OUTSIDE RECORDS SUMMARY | 2025-05-31 17:50 | XMS_ITS | Clinical Summary ---
Author Organization [facility] Address [address] [place] [address] Care Team Providers Care Performing Arts Technicians Name Role Phone Juan Francisco Hernandez MD Primary Care Provider [phone] [phone] Allergies No known active allergies Medications ondansetron (Zofran) 4 mg TabletIndication s:Nausea Take 1 Tablet (4 mg) by mouth every 8 hours as needed for Nausea/Emes is. 21 Tablet 1 01/08/2021 Active ibuprofen (MOTRIN) 800 mg tabletIndication s:Nonintractable headache, unspecified chronicity pattern, unspecified headache type Take 1 Tablet (800 mg) by mouth every 8 hours as needed for Pain, Mild. 120 Tablet 2 01/09/2021 Active Active Problems Problem Noted Date Diagnosed Date Cigarette dependence 10/25/2015 Tinea versicolor 08/18/2009 Rosacea 08/18/2009 Immunizations Immunization Administration Dates Next Due (ADACEL/BOOSTRIX)(10 YR UP) TDAP VACCINE, 0.5ML, IM 02/11/2010 (TDVAX)(7 YRS UP) TETANUS AN D DIPHTHERIA TOXOIDS, ADSORBED (2 LF OF TETANUS TOXOID AND 2 LF OF DIPHTHERIA TOXOID), 0.5ML (PF), IM 10/06/2005 Family History Medical History Relation Name Comments Cancer Maternal Grandfather pancrea se Respiratory Disease Maternal Grandmother Cancer Mother bone Breast Cancer Neg Hx Colon Cancer Neg Hx Relation Name Status Comments Father Alive Maternal Grandfather Maternal Grandmother Alive Mother Alive Paternal Grandfather Alive Paternal Grandmother Alive Social History Tobacco Use Types Packs/Day Years Used Date Smoking Tobacco: Every Day Cigarettes Smokeless Tobacco: Never Tobacco Cessation:Ready to Q uit: No; Counseling Given: Yes Alcohol Use Standard Drinks/Week Comments No 0 (1 standard drink = 0.6 oz pur e alcohol) Comments No Sex and Gender Information Value Date Recorded Sex Assigned at Not on file Legal Sex Female 2:59 AM BIOLOGY LABORATORY ASSISTANT Gender Identity Not on file Sexual Orientation Not on file Last Filed Vital Signs Vital Sign Reading Time Taken Comments Blood Pressure 118/74 01/08/2021 9:42 AM CDT Pulse 98 01/08/2021 9:42 AM CDT Temperature 37 C (98.6 F) 01/08/2021 9:42 AM CDT Respiratory Rate 18 01/08/2021 9:42 AM CDT Oxygen Saturation 98% 01/08/2021 9:42 AM CDT Inhaled Oxygen Concentration - - Weight 63.5 kg (140 lb) 01/08/2021 9:42 AM CDT Height 165.1 cm (5' 5 ) 01/08/2021 9:42 AM CDT Body Mass Index 23.3 01/08/2021 9:42 AM CDT Plan of Treatment Health Maintenance Due Date Last Done Comments HEPATITIS B VACCINES (1 of 3 - 19+ 3-dose series) 2009 HPV/Cotest (21-29) 2011 HPV VACCINES (1 - 3-dose SCDM series) 2017 DTAP/TDAP/TD VACCINES (3 - Td or Tdap) 02/12/2020, 10/06/2005 CERVICAL CANCER SCREENING 2020 HPV/Cotest (30-65) 2020 PAP SMEAR 2020 10/17/2007 INFLUENZA VACCINE (#1) 2025 01/08/2021, 2017 Insurance [address] [place] [address] [place] Care Teams Performing Arts Technicians Relationship Specialty Start Date End Date Juan Francisco Hernandez MD [address] [phone] PCP - General Family Practice 04/06/18
--- OUTSIDE RECORDS SUMMARY | 2025-05-31 17:50 | XMS_ITS | Encounter Summary ---
Author Organization [facility] Address [address] [place] [address] Care Team Providers Care Outside Property Agent Name Role Phone Talita Gutiérrez MD Primary Care Provider [phone]- [phone] Reason for Visit * Reason Onset Date Comments Results 05/31/2025 Encounter Details Date Type Department Care Team (Late st Contact Info) Description 05/31/2025 Telephone [facility] Family Medicine [place] [address] [place] [address] Poly Dorman, BERTA [address] [facility] [place] [address] Results Social History Tobacco Use Types Packs/Day Years [...] worry about transportation for future doctor visits, medicinal plant picker medication, etc.? No 2024 Housing Stability [...] on file Legal Sex Female 12:25 PM RETAIL BRANCH MANAGER Gender Identity Not on file Sexual Orientation Not on file documented as of this encounter Miscellaneous Notes * Telephone Encounter - Viky Dominguez - 05/31/2025 1:14 PM CST I called patient and let her know that her d-dimer results were negative. I tried to get patient anultrasound today in [facility] and [place] and none of them were able to get patient in today. Poly wanted me to work on getting an ultrasound for Tuesday at [facility]. Scheduling told methat they have nothing available until 06/12/25. Poly asked that I call the patient and let her know that if she is worse over the weekend she needs to go to the emergency room. I called and spoke with patient gave her the information and she understood and would go to the emergency room if she gets worse. I have spoke with my processing manager regarding [facility] not having anything available until 06/12. [place] BRANCH MANAGER documented in this encounter Plan of Treatment Not on file documented as of this encounter Visit Diagnoses Not on filedocumented in this encounter Care Teams Outside Property Agent Relationship Specialty Start Date End Date Talita Gutiérrez MD [address] [phone] PCP - General Family Practice 01/10/24 documented as of this encounter
--- OUTSIDE RECORDS SUMMARY | 2025-05-31 17:50 | XMS_ITS | Encounter Summary ---
Author Organization [facility] Address [address] [place] [address] Care Team Providers Care Small Arms Repairer Name Role Phone Talita Gutiérrez MD Primary Care Provider [phone]- [phone] Encounter Details Date Type Department Care Team (Late st Contact Info) Description 05/31/2025 Lab Requisition [facility] Laboratory Services [place] [address] [place] [address] Poly Dorman, [facility] [address] [place] [phone] Social History Tobacco Use Types Packs/Day Years [...] worry about transportation for future doctor visits, orange picker machine operator medication, etc.? No 2024 Housing [...] on file Legal Sex Female 12:25 PM STITCHER TAPE CONTROLLED MACHINE Gender Identity Not on file Sexual Orientation Not on file documented as of this encounter Plan of Treatment Not on file documented as of this encounter Procedures Procedure Name Priority Date/Time Associated Diagnosis Comments D-DIMER Stat 05/31/2025 10:58 AM STITCHER TAPE CONTROLLED MACHINE documented in this encounter Results * D-DIMER (05/31/2025 10:58 AM STITCHER TAPE CONTROLLED MACHINE) D-DIMER QUANT <0.15 <0.50 ug/mL FEU 05/31/2025 11:18 AM STITCHER TAPE CONTROLLED MACHINE [facility] Blood 05/31/2025 10:5 8 AM STITCHER TAPE CONTROLLED MACHINE 05/31/2025 10:58 AM STITCHER TAPE CONTROLLED MACHINE Narrative [facility] - 05/31/2025 11:18 AM STITCHER TAPE CONTROLLED MACHINE D-Dimer assay cutoff value for exclusion of DVT and/or PE is <0.50 ug/mL FEU. us Poly Dorman SENIOR JAVASCRIPT DEVELOPER HEMATOLOGY ORDERABLES Final Resu lt [facility] CLIA # [id number] [address] [address] documented in this encounter Visit Diagnoses Not on filedocumented in this encounter Care Teams Small Arms Repairer Relationship Specialty Start Date End Date Talita Gutiérrez MD [address] [phone] PCP - General Family Practice 01/10/24 documented as of this encounter
--- OUTSIDE RECORDS SUMMARY | 2025-05-31 17:50 | XMS_ITS | Encounter Summary ---
Author Organization [facility] Address [address] [place] [address] Care Team Providers Care Painter Decorator Name Role Phone Talita Gutiérrez MD Primary Care Provider [phone]- [phone] Encounter Details Date Type Department Care Team (Late st Contact Info) Description 05/28/2025 External Device Data [facility] ABSTRACTION Provider, Abstract NO ADDRESS ON FILE Social History Tobacco Use Types Packs/Day Years [...] worry about transportation for future doctor visits, case picker medication, etc.? No 2024 Housing Stability [...] on file Legal Sex Female 12:25 PM TOWN JUSTICE Gender Identity Not on file Sexual Orientation Not on file documented as of this encounter Plan of Treatment Not on file documented as of this encounter Visit Diagnoses Not on filedocumented in this encounter Care Teams Painter Decorator Relationship Specialty Start Date End Date Talita Gutiérrez MD [address] [phone] PCP - General Family Practice 01/10/24 documented as of this encounter
--- OUTSIDE RECORDS SUMMARY | 2025-05-31 17:50 | XMS_ITS | Encounter Summary ---
Author Organization [facility] Address [address] [place] [address] Care Team Providers Care Wholesale Loan Processor Name Role Phone Talita Gutiérrez MD Primary Care Provider [phone]- [phone] Reason for Visit * Reason Onset Date Comments Results 05/28/2025 Encounter Details Date Type Department Care Team (Late st Contact Info) Description 05/28/2025 Results Follow-[facility] Family Medicine [place] [address] [place] [address] [place] [phone] Poly Dorman FNP [address] [facility] [place] [address] COVID-19 ANTIBODIES Social History Tobacco Use Types Packs/Day Years [...] worry about transportation for future doctor visits, turkey picker medication, etc.? No 2024 Housing Stability [...] on file Legal Sex Female 12:25 PM DURAL MECHANIC Gender Identity Not on file Sexual Orientation Not on file documented as of this encounter Miscellaneous Notes * Telephone Encounter - Nena Whittington, ERICA - 05/28/2025 3:49 PM DURAL MECHANIC ----- Message from Poly Dorman sent at 05/28/2025 3:29 PM DURAL MECHANIC ----- COVID antibodies are markedly elevated and consistent with recent illness. BERTA Valdovinos, 05/28/2025 3:29 PM ----- Message ----- From: Mat Rocha Incoming [facility] Results Sent: 05/24/2025 1:59 PM DURAL MECHANIC To: BERTA Valdovinos L MECHANIC documented in this encounter Plan of Treatment Not on file documented as of this encounter Visit Diagnoses Not on filedocumented in this encounter Care Teams Wholesale Loan Processor Relationship Specialty Start Date End Date Talita Gutiérrez MD [address] [phone] PCP - General Family Practice 01/10/24 documented as of this encounter
[2025-05-31 17:51] VITALS: BP 145/98; PULSE 110; RESP 18; TEMP 36.7; O2SAT 97; BMI 20.6
--- OUTSIDE RECORDS SUMMARY | 2025-05-31 17:51 | XMS_ITS | Encounter Summary ---
Author Organization [facility] Address [address] [place] [address] Care Team Providers Care Sectional Belt Mold Assembler Name Role Phone Talita Gutiérrez MD Primary Care Provider [phone]- [phone] Encounter Details Date Type Department Care Team [...] worry about transportation for future doctor visits, burr picker medication, etc.? No 2024 Housing Stability [...] on file Legal Sex Female 12:25 PM CATEGORY DEVELOPMENT ANALYST Gender Identity Not on file Sexual Orientation Not on file documented as of this encounter Plan of Treatment Not on file documented as of this encounter Visit Diagnoses Not on filedocumented in this encounter Care Teams Sectional Belt Mold Assembler Relationship Specialty Start Date End Date Talita Gutiérrez MD [address] [phone] PCP - General Family Practice 01/10/24 documented as of this encounter
--- OUTSIDE RECORDS SUMMARY | 2025-05-31 17:51 | XMS_ITS | Encounter Summary ---
Author Organization [facility] Address [address] [place] [address] Care Team Providers Care Orientation & Mobility Specialist Name Role Phone Juan Francisco Hernandez MD Primary Care Provider [phone] Encounter Details Date Type Department Care Team (Latest Contact Info) Description 05/05/[address] [facility] Family Medicine- [address] [place] [phone] Roberto Brito, NO ADDRESS ON FILE Acute sinusitis, unspecified (Primary Dx) Social History Tobacco Use Types Packs/Day Years Used Date Smoking Tobacco: Never Assessed Comments Unknown Sex and Gender Information Value Date Recorded Sex Assigned at Not on file Legal Sex Female 2:59 AM NATURAL RESOURCE OFFICER Gender Identity Not on file Sexual Orientation Not on file documented as of this encounter Plan of Treatment Not on file documented as of this encounter Visit Diagnoses Diagnosis Acute sinusitis, unspecified- Primary documented in this encounter Care Teams Orientation & Mobility Specialist Relationship Specialty Start Date End Date Juan Francisco Hernandez MD [address] [facility] [address] [place] [address] PCP - General Family Practice 04/06/18 documented as of this encounter
--- OUTSIDE RECORDS SUMMARY | 2025-05-31 17:51 | XMS_ITS | Encounter Summary ---
Author Organization [facility] Address [address] [place] [address] Care Team Providers Care Outreach Analyst Name Role Phone Talita Gutiérrez MD Primary Care Provider [phone]- [phone] Reason for Referral * Medication Prior Authorization - Pending Review Specialty Diagnoses / Procedures Referred By Mini t Referred To Contact Diagnoses Anxiety state Talita Gutiérrez MD [address] [phone] Phone: tel: fax: Referral ID Status Reason Start Date Expiration Date V isits Requested Visits Authorized [id number] Pending Review 1 1 T OFFICE MEDICAL ASSISTANT Reason for Visit * Reason Onset Date Comments Medication Refill 05/24/2025 Encounter Details Date Type Department Care Team (Late st Contact Info) Description 05/24/2025 Refill [facility] Family Medicine [address] [phone] Talita Gutiérrez MD [address] [address] Anxiety state (Primary Dx) Social History Tobacco Use Types [...] about transportation for future doctor visits, pick out hand medication, etc.? No 2024 Housing Stability Answer [...] on file Legal Sex Female 12:25 PM FRONT OFFICE MEDICAL ASSISTANT Gender Identity Not on file Sexual Orientation Not on file documented as of this encounter Plan of Treatment Not on file documented as of this encounter Visit Diagnoses Diagnosis Anxiety state- Primary Anxiety state, unspecified documented in this encounter Care Teams Outreach Analyst Relationship Specialty Start Date End Date Talita Gutiérrez MD [address] [facility] [address] [place] [phone] PCP - General Family Practice 01/10/24 documented as of this encounter
--- OUTSIDE RECORDS SUMMARY | 2025-05-31 17:51 | XMS_ITS | Encounter Summary ---
Author Organization [facility] Address [address] [place] [address] Care Team Providers Care Truck Driver Name Role Phone Talita Gutiérrez MD Primary Care Provider [phone]- [phone] Reason for Visit * Reason Onset Date Comments please call 05/24/2025 Encounter Details Date Type Department Care Team (Late st Contact Info) Description 05/24/2025 Telephone [facility] Family Medicine [place] [address] [place] [address] [place] [address] Poly Dorman FNP [address] [facility] [place] [address] please call Social History Tobacco Use Types Packs/Day Years [...] worry about transportation for future doctor visits, bean picker machine operator medication, etc.? No 2024 [...] on file Legal Sex Female 12:25 PM CUSTOMS OFFICER Gender Identity Not on file Sexual Orientation Not on file documented as of this encounter Miscellaneous Notes * Telephone Encounter - Viky Dominguez R - 05/24/2025 2:48 PM CST I spoke with patient she states that she took the hydroxyzine and it helped her heart to stop doingwhatever it was doing and calm down but messed with her mind and it freaked her out. She states shewould try a low dose of anxiety medicine and see if it helped. She just needs to get back to her normal life and taking care of her family she doesn't like them seeing her like this and not being able to work is really bothering her. She doesn't want to get addicted to anything she doesn't like medication. OMS OFFICER * Telephone Encounter - Viky Dominguez - 05/24/2025 10:01 AM CST 05/24/2025 10:01 AM Patients stopped by the clinic this morning asking to speak with [facility]. [facility] Poly has been seeing her for. They are requesting to speak with Poly regarding what she has going on. Viky OMS OFFICER documented in this encounter Plan of Treatment Not on file documented as of this encounter Visit Diagnoses Not on filedocumented in this encounter Care Teams Truck Driver Relationship Specialty Start Date End Date Talita Gutiérrez MD [address] [phone] PCP - General Family Practice 01/10/24 documented as of this encounter
--- OUTSIDE RECORDS SUMMARY | 2025-05-31 17:52 | XMS_ITS | Clinical Summary ---
Author Organization [facility] Address [address] [facility] [address] 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 Dissolve tablet on top of tongue, then swallow with saliva. 30 Tablet 1 05/16/20 25 Active atenoloL (TENORMIN) 25 mg tablet Take 1 Tablet (25 mg) by mouth 2 times daily. 60 Tablet 05/22/20 25 025 Active Additional Information Patient taking differently: 12.5 mgOral TWO TIMES DAILY, Reported on 05/31/2025 hydrOXYzine HCL (ATARAX) 10 mg tabletIndicatio ns:Anxiety state Take 1 Tablet (10 mg) by mouth 3 times daily as needed for Itching, Anxiety or Insomnia. 90 Tablet 1 05/23/20 25 Active ALPRAZolam (Xanax) 0.5 mg tabletIndicatio ns:Anxiety state Take 1 Tablet (0.5 mg) by mouth 1 time daily as needed for Anxiety. 30 Tablet 05/27/20 25 Active sertraline (Zoloft) 50 mg tabletIndicatio ns:Situational depression Take 1 Tablet (50 mg) by mouth daily. 30 Tablet 1 05/30/20 25 Active ondansetron (ZOFRAN) 8 mg Tablet Take 8 mg by mouth every 8 hours as needed for Nausea/Emesis. 025 Discontinu ed(Alterna te therapy prescribed ) cefdinir (OMNICEF) 300 mg capsuleIndicati ons:Upper respiratory tract infection, unspecified type Take 1 Capsule (300 mg) by mouth every 12 hours for 10 days. 20 Capsule 05/16/20 25 025 Active Problems Problem Noted Date Diagnosed Date Cigarette dependence 10/25/2015 Rosacea 08/18/2009 Tinea versicolor 08/18/2009 Encounters Date Type Department Care Team Description 05/31/2025 10:48 AM BOTTLE WASHER MACHINE Hospital Encounter [facility] Outpatient [facility] Services [place] [address] [facility] [address] [place] [address] Poly Dorman FNP Arrived 05/31/2025 9:00 AM BOTTLE WASHER MACHINE Office Visit [address] [address] Poly Dorman FNP Intermittent claudication (Primary Dx) 05/31/[address] [place] [address] Poly Dorman FNP Results 05/31/2025 Lab Requisition [facility] General Laboratory Services [place] [address] [facility] [address] [place] [address] Poly Dorman FNP 05/30/2025 2:00 PM BOTTLE WASHER MACHINE Office Visit [address] [place] [address] Poly Dorman FNP Situational depression (Primary Dx) 05/28/2025 External Device Data [facility] ABSTRACTION Provider, Abstract 05/28/2025 Results Follow-Up [address] [place] [place] [address] Poly Dorman FNP COVID-19 ANTIBODIES 05/28/2025 External Device Data ST[facility] ABSTRACTION Provider, Abstract 05/27/2025 2:57 PM BOTTLE WASHER MACHINE - 05/27/2025 11:59 PM BOTTLE WASHER MACHINE Hospital Encounter [facility] Respiratory Therapy Services [place] [address] [facility] [address] [place] [address] Poly Dorman FNP Discharge Disposition: Home or Self Care 05/24/2025 6:09 AM BOTTLE WASHER MACHINE - 05/24/2025 8:32 AM [facility] Emergency [facility] Emergency Medicine [address] [facility] [address] [place] [address] Cash Renee MD Palpitations (Primary Dx) Discharge Disposition: Home or Self Care 05/24/2025 Refill [facility] Medicine [place] [address] [place] [address] Talita Gutiérrez MD Anxiety state (Primary Dx) 05/24/2025 Telephone [facility] [place] [address] [place] [address] [place] [address] Poly Dorman FNP please call 05/23/2025 10:40 AM BOTTLE WASHER MACHINE Office Visit [facility] Family [facility] [place] [address] [place] [address] [place] [phone] Poly Dorman FNP Anxiety state (Primary Dx); Syncope, unspecified syncope type 05/23/2025 [facility] [address] [facility] [address] [place] [address] Carlita Soto, YOSEF CORTISOL LEVEL, PROCALCITONIN, PROGESTERONE, Additional followed-up results: 3 05/22/2025 7:08 AM BOTTLE WASHER MACHINE - 05/22/2025 9:57 AM [facility] Emergency Medicine [address] [facility] 60 [place] [address] Kris Michele MD Heart palpitations (Primary Dx) Discharge Disposition: Home or Self Care 05/21/2025 9:20 AM BOTTLE WASHER MACHINE Office Visit [facility] Medicine [place] [address] [place] [address] [place] [address] Poly Dorman, CONTROL ROOM AGENT Upper respiratory tract infection, unspecified type (Primary Dx); Syncope, unspecified syncope type 05/21/2025 External Device Data ST[facility] ABSTRACTION Provider, Abstract 05/21/2025 External Device Data ST[facility] ABSTRACTION Provider, Abstract 05/21/2025 External Device Data ST[facility] ABSTRACTION Provider, Abstract 05/17/2025 Abstract [facility] [address] [place] [phone] Provider, Abstract 05/17/2025 Orders Only [facility] [address] [place] [address] Provider, Abstract 05/16/2025 9:40 AM CDT Office Visit [facility] [place] [place] [address] Poly Dorman, CONTROL ROOM AGENT Upper respiratory tract infection, unspecified type (Primary Dx); Syncope, unspecified syncope type 05/13/2025 10:30 AM CDT - 05/13/2025 12:12 PM CDT Emergency [facility] Emergency Medicine [address] [place] [address] Kris Michele MD Anxiety state (Primary Dx); Vasovagal reaction; Encounter for medical screening examination Discharge Disposition: Home or Self Care 05/13/2025 Travel from Last 3 Months Immunizations Immunization Administration Dates Next Due (ADACEL/BOOSTRIX)(10 YR UP) TDAP VACCINE, 0.5ML, IM 02/11/2010 (PFIZER)(12 YR UP) COVID-19 VACCINE - EMERGENCY USE AUTHORIZATION, MRNA, [id number](PF) 30 MCG/0.3 ML IM SUSP 03/02/2021,02/09/2021 (TDVAX)(7 YRS UP) TETANUS AN D DIPHTHERIA TOXOIDS, ADSORBED (2 LF OF TETANUS TOXOID AND 2 LF OF DIPHTHERIA TOXOID), 0.5ML (PF), IM 10/06/2005 Influenza Seasonal Unspecified Formulation IM ,05/01/2019 Family History Medical History Relation Name Comments [...] worry about transportation for future doctor visits, filler picker medication, etc.? No 2024 Housing Stability [...] on file Legal Sex Female 12:25 PM BOTTLE WASHER MACHINE Gender Identity Not on file Sexual Orientation Not on file Last Filed Vital Signs Vital Sign Reading Time Taken Comments Blood Pressure 110/72 05/31/2025 8:59 AM BOTTLE WASHER MACHINE Pulse 99 05/31/2025 8:59 AM BOTTLE WASHER MACHINE Temperature 37.1 C (98.7 F) 05/31/2025 8:59 AM BOTTLE WASHER MACHINE Respiratory Rate 16 05/31/2025 8:59 AM BOTTLE WASHER MACHINE Oxygen Saturation 99% 05/31/2025 8:59 AM BOTTLE WASHER MACHINE Inhaled Oxygen Concentration - - Weight 56.5 kg (124 lb 9.6 oz) 05/31/2025 8:59 A M BOTTLE WASHER MACHINE Height 165.1 cm (5' 5 ) 05/31/2025 8:59 AM BOTTLE WASHER MACHINE Body Mass Index 20.73 05/31/2025 8:59 AM BOTTLE WASHER MACHINE Plan of Treatment Health Maintenance Due Date Last Done Comments HEPATITIS B VACCINES (1 of 3 - 19+ 3-dose series) 2009 Preventative Visit-Managed Medicaid 2009 HPV/Cotest (21-29) 2011 HPV VACCINES (1 - 3-dose SCD M series) 2017 DTAP/TDAP/TD VACCINES (3 - T d or Tdap) 02/12/2020 02/11/2010, 10/06/2005 CERVICAL CANCER SCREENING 2020 HPV/Cotest (30-65) 2020 PAP SMEAR 2020 INFLUENZA VACCINE (#1) 2025 , 12/07/2021, 01/08/2021, Additional history exists COVID-19 Vaccine ( - 2024-2 6 season) 2025 03/02/2021, 02/09/2021 Procedures Procedure Name Priority Date/Time Associated Diagnosis Comments D-DIMER Stat 05/31/2025 10:58 AM BOTTLE WASHER MACHINE TROPONIN BASELINE, 5TH GEN Stat 05/24/2025 7:26 AM BOTTLE WASHER MACHINE MAGNESIUM LEVEL Stat 05/24/2025 7:26 AM BOTTLE WASHER MACHINE COMPREHENSIVE METABOLIC PANEL Stat 05/24/2025 7:26 AM BOTTLE WASHER MACHINE CBC WITH DIFFERENTIAL Stat 05/24/2025 7:26 AM BOTTLE WASHER MACHINE EKG 12-LEAD Stat 05/24/2025 6:52 AM BOTTLE WASHER MACHINE CONNECTIVE TISSUE DISEASE CASCADE Stat 05/22/2025 10:10 AM BOTTLE WASHER MACHINE PROLACTIN Stat 05/22/2025 7:50 AM BOTTLE WASHER MACHINE ACTH Stat 05/22/2025 7:50 AM BOTTLE WASHER MACHINE PROGESTERONE Stat 05/22/2025 7:50 AM BOTTLE WASHER MACHINE ESTROGENS FRACTIONATED Stat 7:50 AM BOTTLE WASHER MACHINE BASIC METABOLIC PANEL Stat 05/22/2025 7:12 AM BOTTLE WASHER MACHINE CBC WITH DIFFERENTIAL Stat 05/22/2025 7:12 AM BOTTLE WASHER MACHINE PROCALCITONIN Stat 05/22/2025 7:12 AM BOTTLE WASHER MACHINE SEDIMENTATION RATE Stat 05/22/2025 7: 12 AM BOTTLE WASHER MACHINE CORTISOL LEVEL Stat 05/22/2025 7:12 AM BOTTLE WASHER MACHINE TICK-BORNE DISEASE AB PANEL W/REFLEX Stat 05/22/2025 7:12 AM BOTTLE WASHER MACHINE COVID-19 ANTIBODIES Routine 05/21/2025 1 0:41 AM BOTTLE WASHER MACHINE Upper respiratory tract infection, unspecified type Syncope, unspecified syncope type EKG 12-LEAD Stat 05/13/2025 10:57 AM CDT TROPONIN Stat 05/13/2025 10:43 AM CDT MAGNESIUM LEVEL Stat 05/13/2025 10:43 AM CDT C-REACTIVE PROTEIN Stat 05/13/2025 10 :43 AM CDT TSH Stat 05/13/2025 10:43 AM CDT COMPREHENSIVE METABOLIC PANEL Stat 05/13/2025 10:43 AM CDT CBC WITH DIFFERENTIAL Stat 05/13/2025 10:43 AM CDT HCG QUALITATIVE, URINE Stat 10:37 AM CDT DRUG SCREEN, URINE Stat 05/13/2025 10 :37 AM CDT URINALYSIS W/REFLEX MICROSCOPIC Stat 05/13/2025 10:37 AM CDT COMPREHENSIVE METABOLIC PANEL Routine 05/11/2025 8:43 AM CDT from Last 3 Months Results * D-DIMER (05/31/2025 10:58 AM BOTTLE WASHER MACHINE) D-DIMER QUANT <0.15 <0.50 ug/mL FEU 05/31/2025 11:18 AM BOTTLE WASHER MACHINE [facility] Blood 05/31/2025 10:5 8 AM BOTTLE WASHER MACHINE 05/31/2025 10:58 AM BOTTLE WASHER MACHINE [facility] - 05/31/2025 11:18 AM BOTTLE WASHER MACHINE D-Dimer assay cutoff value for exclusion of DVT and/or PE is <0.50 ug/mL FEU. us Poly HAMPTON HEMATOLOGY ORDERABLES Final Resu lt [facility] CLIA # [id number] [address] [place] [address] * TROPONIN BASELINE, 5TH GEN (05/24/2025 7:26 AM BOTTLE WASHER MACHINE) [facility] TROPONIN T, BASELINE 5TH GEN <6 <=10 ng/L 05/24/2025 8:03 AM [facility] Blood Venipuncture / Unknown 05/24/2025 7:26 AM BOTTLE WASHER MACHINE 05/24/2025 7:38 AM BOTTLE WASHER MACHINE [facility] - 05/24/2025 8:03 AM BOTTLE WASHER MACHINE Troponin Undetectable us Cash Renee MD CHEMISTRY ORDERABLES Final Result [facility] CLIA # [id number] [address] [place] [address] * (ABNORMAL) CBC WITH DIFFERENTIAL (05/24/2025 7:26 AM BOTTLE WASHER MACHINE) Only the most recent of3 resultswithin the time period is included. WBC 7.9 4.0 - 10.0 K/uL 05/24/2025 7:43 AM [facility] RBC 4.42 3.93 - 5.22 M/uL 05/24/2025 7:43 AM [facility] HEMOGLOBIN 13.9 11.2 - 15.7 g/dL 05/24/2025 7:43 AM [facility] HEMATOCRIT 40.3 34.1 - 44.9 % 05/24/2025 7:43 AM [facility] MCV 91.2 79.4 - 94.8 fL 05/24/2025 7:43 AM [facility] MCH 31.4 25.6 - 32.2 pg 05/24/2025 7:43 AM [facility] MCHC 34.5 32.2 - 35.5 g/dL 05/24/2025 7:43 AM [facility] RDW 12.8 11.0 - 14.5 % 05/24/2025 7:43 AM [facility] RDW-STDEV 42.8 36.9 - 56.9 fL 05/24/2025 7:43 AM [facility] PLATELETS 183 163 - 337 K/uL 05/24/2025 7:43 AM [facility] MPV 11.3 10.0 - 14.8 fL 05/24/2025 7:43 AM [facility] NEUTROPHILS 74(H) 34 - 71 % 05/24/2025 7:43 AM [facility] LYMPHOCYTES 18(L) 19 - 52 % 05/24/2025 7:43 AM [facility] MONOCYTES 6 5 - 13 % 05/24/2025 7:43 AM [facility] EOSINOPHILS 1 1 - 6 % 05/24/2025 7:43 AM [facility] BASOPHILS 1 0 - 1 % 05/24/2025 7:43 AM [facility] IMMATURE GRANULOCYTES 0 % 05/24/2025 7:43 AM [facility] NEUTROPHIL ABSOLUTE 5.87 1.56 - 6.13 K/uL 05/24/2025 7:43 AM [facility] LYMPHOCYTE ABSOLUTE 1.44 1.20 - 3.40 K/uL 05/24/2025 7:43 AM [facility] MONOCYTE ABSOLUTE 0.47(H) 0.24 - 0.36 K/uL 05/24/2025 7:43 AM [facility] EOSINOPHIL ABSOLUTE 0.08 0.04 - 0.36 K/uL 05/24/2025 7:43 AM [facility] BASOPHILS ABSOLUTE 0.04 0.01 - 0.08 K/uL 05/24/2025 7:43 AM [facility] IMMATURE GRANULOCYTES ABSOLUTE 0.02 K/uL 05/24/2025 7:43 AM [facility] Blood Venipuncture / Unknown 05/24/2025 7:26 AM BOTTLE WASHER MACHINE 05/24/2025 7:38 AM BOTTLE WASHER MACHINE us Cash Renee MD HEMATOLOGY ORDERABLES Final Result Performing Organization Address [facility]/ZIP Co de Phone Number [facility] CLIA # [id number] [address] [place] [address] * MAGNESIUM LEVEL (05/24/2025 7:26 AM BOTTLE WASHER MACHINE) Only the most recent of2 resultswithin the time period is included. MAGNESIUM 1.8 1.6 - 2.6 mg/dL 05/24/2025 8:03 AM [facility] Blood Venipuncture / Unknown 05/24/2025 7:26 AM BOTTLE WASHER MACHINE 05/24/2025 7:38 AM BOTTLE WASHER MACHINE Cash Renee MD CHEMISTRY ORDERABLES Final Result Performing Organization Address [facility] Co de Phone Number [facility] CLIA # [id number] [address] [place] [address] * (ABNORMAL) COMPREHENSIVE METABOLIC PANEL (05/24/2025 7:26 AM BOTTLE WASHER MACHINE) Only the most recent of3 resultswithin the time period is included. SODIUM 142 136 - 145 mmol/L 05/24/2025 8:03 AM [facility] POTASSIUM 4.1 3.5 - 5.1 mmol/L 05/24/2025 8:03 AM [facility] CHLORIDE 107 98 - 107 mmol/L 05/24/2025 8:03 AM [facility] CO2 23 22 - 29 mmol/L 05/24/2025 8:03 AM [facility] CALCIUM 9.0 8.6 - 10.0 mg/dL 05/24/2025 8:03 AM [facility] BUN 6 6 - 20 mg/dL 05/24/2025 8:03 AM [facility] CREATININE 0.66 0.51 - 0.95 mg/dL 05/24/2025 8:03 AM [facility] GLUCOSE 82 74 - 99 mg/dL 05/24/2025 8:03 AM [facility] TOTAL PROTEIN 6.3(L) 6.6 - 8.7 g/dL 05/24/2025 8:03 AM [facility] ALBUMIN 4.3 3.5 - 5.2 g/dL 05/24/2025 8:03 AM [facility] BILIRUBIN TOTAL 0.6 0.0 - 1.2 mg/dL 05/24/2025 8:03 AM [facility] ALKALINE PHOSPHATASE 41 35 - 104 U/L 05/24/2025 8:03 AM [facility] AST 16 0 - 35 U/L 05/24/2025 8:03 AM [facility] ALT 8 0 - 35 U/L 05/24/2025 8:03 AM [facility] GFR >60 >=60 mL/min/1.7 3 sq meter 05/24/2025 8:03 AM [facility] Comment:eGFR calculated with 2020 CKD-EPI equation. Vegetarian diet, extremely high or low muscle mass, and may affect results. Cystatin C with Glomerular Filtration Rate is a suitable alternative for these patients. ANION GAP 12 5 - 20 mmol/L 05/24/2025 8:03 AM BOTTLE WASHER MACHINE [facility] Blood Venipuncture / Unknown 05/24/2025 7:26 AM BOTTLE WASHER MACHINE 05/24/2025 7:38 AM BOTTLE WASHER MACHINE us Cash Renee MD CHEMISTRY ORDERABLES Final Result [facility] CLIA # [id number] [address] [place] [address] * EKG 12 lead (05/24/2025 6:52 AM BOTTLE WASHER MACHINE) Only the most recent of2 resultswithin the time period is included. Narrative Cash Renee MD - 05/24/2025 6:52 AM BOTTLE WASHER MACHINE Cash Renee MD 05/24/2025 8:33 AM EKG 12 lead Date/Time: 05/24/2025 6:52 AM Performed by: Cash Renee MD Authorized by: Cash Renee MD ECG interpreted by ED Physician in the absence of a pot maker: yes Rate: ECG rate assessment: age appropriate Rhythm: Rhythm Origin: sinus Rhythm morphology: narrow [place]: QRS axis: Normal Intervals: normal QRSTT: QRSTT changes: No us Cash Renee MD ECG ORDERABLES Final Result * CONNECTIVE TISSUE DISEASE CASCADE (05/22/2025 10:10 AM BOTTLE WASHER MACHINE) RHEUMATOID FACTOR <10 <14 IU/mL 025 11:56 AM BOTTLE WASHER MACHINE [facility] CYCLIC CITRULLINATED PEPTIDE AB IGG <16 UNITS 05/27/2025 11:56 AM BOTTLE WASHER MACHINE [facility] Comment: Reference Range Negative: <20 Weak Positive: 20-39 Moderate Positive: 40-59 Strong Positive: >59 GOLDEN SCREEN NEGATIVE NEGATIVE 05/27/2025 11:56 AM BOTTLE WASHER MACHINE [facility] Comment: GOLDEN IFA is a first line screen for detecting the presence of up to approximately 150 autoantibodies in various autoimmune diseases. A negative GOLDEN IFA result suggests an GOLDEN-associated autoimmune disease is not present at this time, and does not reflex further. If there is high clinical suspicion for Sjogren's syndrome, testing for anti-SS-A/Ro antibody should be considered. Anti-Callie-1 antibody should be considered for clinically suspected inflammatory myopathies. AC-0: Negative International Consensus on GOLDEN Patterns (https://doi.org/10.1515/ooiw-9372-3618) For additional information, please refer to http://education.Cross Mediaworks/faq/SXO518 (This link is being provided for informational/ educational purposes only.) MUTATED CITRULLINATED VIMENTIN AB <20 <20 U/mL 05/27/2025 11:56 AM BOTTLE WASHER MACHINE [facility] Comment: Anti-mutated citrullinated vimentin antibody may be used as a second-line marker of rheumatoid arthritis, in addition to rheumatoid factor and anti-cyclic citrullinated peptide (CCP). Blood BLOOD SPECIMEN / Unknown Collection / Unknown 05/22/2025 10:10 AM BOTTLE WASHER MACHINE 05/22/2025 10:16 AM BOTTLE WASHER MACHINE [facility] - 05/27/2025 11:56 AM BOTTLE WASHER MACHINE Performing Organization Information: Site ID: [place] Name: [facility] Address: [address] [place], [place] [address] [address] Director: Miki Boston MD Performing Organization Information: Site ID: [place] Name: [facility] Address: [address] [place], [place] [address] [facility] [place] [address] Director: Miki Boston MD Performing Organization Information: Site ID: [place] Name: [facility] Address: [address] [place], [place] [address] [facility] [address] Director: Miki Boston MD Performing Organization Information: Site ID: Name: [facility], Address: [address] [place] [address] Director: Nancy Malone MD,PhD,TREMAYNE Site ID: [place] Name: [facility] Address: [facility] Srinivasan [facility] [place] [address] Director: Miki Boston MD Kris Michele MD CHEMISTRY ORDERABLES Final Result [facility] [phone] * ESTROGENS FRACTIONATED (05/22/2025 7:50 AM BOTTLE WASHER MACHINE) ESTRONE 55 pg/mL 05/27/2025 11:43 PM [facility] Comment: Adult Female Reference Ranges for Estrone: Follicular Phase: 10-138 pg/mL Luteal Phase: 16-173 pg/mL Postmenopausal Phase: < or = 65 pg/mL Pediatric Female Reference Ranges for Estrone: Pre-pubertal (1-9 years): < or = 34 pg/mL 10-11 years: < or = 72 pg/mL 12-14 years: < or = 75 pg/mL 15-17 years: < or = 188 pg/mL This test was developed and its analytical performance characteristics have been determined by [facility]. It has not been cleared or approved by the FDA. This assay has been validated pursuant to the CLIA regulations and is used for clinical purposes. ESTRADIOL, ULTRASENSITIVE 121 pg/mL 05/27/2025 11:43 PM [facility] Comment: Female Reference Ranges for Estradiol, Ultrasensitive (pg/mL): Follicular Phase: 39-375 Luteal Phase: 48-440 Postmenopausal Phase: < or = 10 This test was developed and its analytical performance characteristics have been determined by [facility]. It has not been cleared or approved by the FDA. This assay has been validated pursuant to the CLIA regulations and is used for clinical purposes. ESTRIOL LEVEL <0.10 ng/mL 05/27/2025 11:43 PM [facility] Comment: Adult Reference Ranges for Estriol: Adult Males: < or = 0.18 ng/mL Adult Females (non): < or = 0.21 ng/mL : First Trimester: < or = 2.50 ng/mL Second Trimester: < or = 9.60 ng/mL Third Trimester: < or = 14.60 ng/mL This test was developed and its analytical performance characteristics have been determined by [facility]. It has not been cleared or approved by the FDA. This assay has been validated pursuant to the CLIA regulations and is used for clinical purposes. Blood Collection / Unknown 05/22/2025 7:50 AM BOTTLE WASHER MACHINE 05/22/2025 7:58 AM BOTTLE WASHER MACHINE Narrative [facility] - 05/27/2025 11:43 PM BOTTLE WASHER MACHINE Performing Organization Information: Site ID: [place] Name: [facility], Address: [address] [place] [address] Director: Nancy Malone MD,PhD,TREMAYNE Kris Michele MD CHEMISTRY ORDERABLES Final Result Performing Organization Address [facility] de Phone Number [facility] [phone] * PROLACTIN (05/22/2025 7:50 AM BOTTLE WASHER MACHINE) PROLACTIN 6.1 ng/mL 05/23/2025 8:48 AM BOTTLE WASHER MACHINE [facility] Comment: Reference Range Females Non- 3.0-30.0 10.0-209.0 Postmenopausal 2.0-20.0 Blood Collection / Unknown 05/22/2025 7:50 AM BOTTLE WASHER MACHINE 05/22/2025 7:58 AM BOTTLE WASHER MACHINE Narrative [facility] - 05/23/2025 8:48 AM BOTTLE WASHER MACHINE Performing Organization Information: Site ID: [place] Name: [facility] Address: [address] [place] [address] Director: Miki Boston MD Kris Michele MD CHEMISTRY ORDERABLES Final Result Performing Organization Address [facility] Co de Phone Number [facility] [phone] * PROGESTERONE (05/22/2025 7:50 AM BOTTLE WASHER MACHINE) PROGESTERONE <0.5 ng/mL 05/23/2025 8:48 AM BOTTLE WASHER MACHINE [facility] Comment: Reference Ranges Female Follicular Phase < 1.0 Luteal Phase 2.6-21.5 Post menopausal < 0.5 1st Trimester 4.1-34.0 2nd Trimester 24.0-76.0 3rd Trimester 52.0-302.0 Blood Collection / Unknown 05/22/2025 7:50 AM BOTTLE WASHER MACHINE 05/22/2025 7:58 AM BOTTLE WASHER MACHINE Narrative [facility] - 05/23/2025 8:48 AM BOTTLE WASHER MACHINE Performing Organization Information: Site ID: [place] Name: [facility] Address: [address] [place] [address] [place] [address] Director: Miki Boston MD us Kris Michele MD CHEMISTRY ORDERABLES Final Result Performing Organization Address [facility] Co de Phone Number [facility] [phone] * ACTH (05/22/2025 7:50 AM BOTTLE WASHER MACHINE) Pathologist [facility] ACTH 6 6 - 50 pg/mL 05/25/2025 1:43 PM BOTTLE WASHER MACHINE [facility] Comment: Reference range applies only to specimens collected between 7am-10am. Blood Collection / Unknown 05/22/2025 7:50 AM BOTTLE WASHER MACHINE 05/22/2025 7:58 AM BOTTLE WASHER MACHINE Narrative [facility] - 05/25/2025 1:43 PM BOTTLE WASHER MACHINE Performing Organization Information: Site ID: [place] Name: [facility] Address: [address] [place] [address] [place] [address] Director: Nolan Medel M.D.,PhD us Kris Michele MD CHEMISTRY ORDERABLES Final Result Performing Organization Address [facility] Co de Phone Number [facility] [phone] * TICK-BORNE DISEASE AB PANEL W/REFLEX (05/22/2025 7:12 AM BOTTLE WASHER MACHINE) BABESIA MICROTI IGG AB <1:64 titer 05/27/2025 7:13 PM BOTTLE WASHER MACHINE [facility] BABESIA MICROTI IGM AB <1:20 titer 05/27/2025 7:13 PM BOTTLE WASHER MACHINE [facility] BABESIA MICROTI INTERPRETATION SEE COMMENT 05/27/2025 7:13 PM BOTTLE WASHER MACHINE [facility] Comment: ANTIBODY NOT DETECTED REFERENCE RANGES: IgG <1:64 IgM <1:20 Elevated antibody levels to B. microti indicate exposure to the organism. Human babesiosis infection is transmitted by the bite of an infected Ixodes tick or less frequently from transfusion with blood from an infected donor. Definitive diagnosis is made by identifying intraerythrocytic organisms in peripheral blood. In patients with low parasitemia, antibody detection by IFA is recommended. IgG levels greater than or equal to 1:1024 can be detected in acute phase patients with parasites in blood smears. The IFA assay can be used as a seroepidemiologic tool to study the frequency and distribution of B. microti in endemic areas especially in persons with mixed infections also involving Borrelia burgdorferi. This test was developed and its analytical performance characteristics have been determined by [facility]. It has not been cleared or approved by FDA. This assay has been validated pursuant to the CLIA regulations and is used for clinical purposes. LYME IGG, IGM AB <0.90 INDEX 05/27/20 25 7:13 PM BOTTLE WASHER MACHINE [facility] Comment: REFERENCE RANGE: <0.90 Index Interpretation < 0.90 NEGATIVE 0.90-1.09 EQUIVOCAL > 1.09 POSITIVE As recommended by the Food and Drug Administration (FDA), all samples with positive or equivocal results in a Borrelia burgdorferi antibody screen will be tested using a blot method. Positive or equivocal screening test results should not be interpreted as truly positive until verified as such using a supplemental assay (e.g., B. burgdorferi blot). The screening test and/or blot for B. burgdorferi antibodies may be falsely negative in early stages of Lyme disease, including the period when erythema migrans is apparent. A.PHAGOCYTOPH IGG <1:64 025 7:13 PM BOTTLE WASHER MACHINE [facility] A.PHAGOCYTOPH IGM <1:20 025 7:13 PM BOTTLE WASHER MACHINE [facility] ANAPLASMA PHAGOCYTOPHILUM INTERP SEE COMMENT 05/27/2025 7:13 PM BOTTLE WASHER MACHINE [facility] Comment: ANTIBODY NOT DETECTED REFERENCE RANGE: IgG <1:64 IgM <1:20 Anaplasma phagocytophilum is the tick-borne agent causing Human Granulocytic Ehrlichiosis (HGE). HGE is distinct and separate from Human Monocytic Ehrlichiosis (HME), caused by Ehrlichia chaffeensis. Serologic cross-reactivity between A. phagocytophilum and E. Chaffeensis is minimal (5-15%). This test was developed and its analytical performance characteristics have been determined by [facility]. It has not been cleared or approved by FDA. This assay has been validated pursuant to the CLIA regulations and is used for clinical purposes. BABESIA DUNCANI/WA1 IGG AB <1:256 05/27/2025 7:13 PM [facility] Comment: REFERENCE RANGE: <1:256 INTERPRETIVE CRITERIA: <1:256 Antibody not detected > or = 1:256 Antibody detected Babesia duncani, also known as WA1, has been associated with symptoms similar to those caused by Babesia microti. Little, if any, cross-reactivity occurs between Babesia microti and WA1. This test was developed and its analytical performance characteristics have been determined by [facility]. It has not been cleared or approved by FDA. This assay has been validated pursuant to the CLIA regulations and is used for clinical purposes. EHRLICHIA CHAFFEENSIS IGG AB <1:64 05/27/2025 7:13 PM [facility]ENCE [facility] EHRLICHIA CHAFFEENSIS IGM AB <1:20 05/27/2025 7:[address] [facility] EHRLICHIA CHAFFEENSIS INTERP SEE COMMENT 05/27/2025 7:13 PM [facility] REFERENCE [facility] Comment: ANTIBODY NOT DETECTED REFERENCE RANGE: IgG <1:64 IgM <1:20 Ehrlichia chaffeensis has been identified as the causative agent of Human Monocytic Ehrlichiosis (HME). Infected individuals produce specific antibodies to E. chaffeensis that can be detected by an immunofluorescent antibody (IFA) test. Single IgG IFA titers of 1:64 or greater indicate exposure to E. chaffeensis. A four-fold rise in IgG titers between acute and convalescent samples and/or the presence of IgM antibody against E. chaffeensis suggest recent or current infection. This test was developed and its analytical performance characteristics have been determined by [facility]. It has not been cleared or approved by FDA. This assay has been validated pursuant to the CLIA regulations and is used for clinical purposes. Blood BLOOD SPECIMEN / Unknown Collection / Unknown 05/22/2025 7:12 AM BOTTLE WASHER MACHINE 05/22/2025 7:38 AM BOTTLE WASHER MACHINE Narrative [facility] - 05/27/2025 7:13 PM BOTTLE WASHER MACHINE Performing Organization Information: Site ID: EZ Name: [facility], Address: [address] [place], [place] [id number] Director: Nancy Malone MD,PhD,TREMAYNE Performing Organization Information: Site ID: EZ Name: [facility], Address: [address] [place], [place] [id number] Director: Nancy Malone MD,PhD,TREMAYNE Performing Organization Information: Site ID: EZ Name: [facility], Address: [address] [place], [place] [id number] Director: Nancy Malone MD,PhD,TREMAYNE Performing Organization Information: Site ID: EZ Name: [facility], Address: [address] [place], [place] [id number] Director: Nancy Malone MD,PhD,TREMAYNE Performing Organization Information: Site ID: EZ Name: [facility], Address: [address] [place], [place] [id number] Director: Nancy Malone MD,PhD,TREMAYNE Kris Michele MD CHEMISTRY ORDERABLES Final Result Performing Organization Address City/State/[facility] Co de Phone Number [facility] [phone] * PROCALCITONIN (05/22/2025 7:12 AM BOTTLE WASHER MACHINE) PROCALCITONIN 0.02 <=0.08 ng/mL 05/22/2025 5:45 PM [facility] Blood BLOOD SPECIMEN / Unknown Collection / Unknown 05/22/2025 7:12 AM BOTTLE WASHER MACHINE 05/22/2025 7:38 AM BOTTLE WASHER MACHINE Narrative [facility] - 05/22/2025 5:45 PM BOTTLE WASHER MACHINE The utility of procalcitonin is limited/NOT recommended in certain populations (e.g. newborns, dialysis/ESRD, patients with recent major surgery/trauma/verduzco, liver cirrhosis, viral hepatitis, certain cancers, etc.). Procalcitonin levels MUST be interpreted in the context of the patient's clinical condition and CANNOT be solely relied upon for diagnosis of infection. <0.25 ng/mL: Bacterial infection unlikely, particularly lower respiratory tract infections. <0.5 ng/mL: Low risk for progression to severe sepsis/septic shock. Localized infection possible. Measurements done early (<6 hours) after systemic process starts may still be low. 0.5-2 ng/mL: Moderate risk for progression to severe sepsis/septic shock. >2 ng/mL: High risk for progression to severe sepsis/septic shock. If antibiotics ARE administered, repeat testing is recommended every 2-3 days to help guide antibiotic cessation. Once a decrease of 80% or more has occurred from baseline, discontinuation of antibiotics should strongly be considered in clinically stable patients. Procalcitonin is produced in the setting of systemic inflammation, particularly bacterial infections. It is detectable within 2-4 hours and peaks within 6-24 hours. Kris Michele MD CHEMISTRY ORDERABLES Final Result [facility] # [id number] [address] [place] [id number] * SEDIMENTATION RATE (05/22/2025 7:12 AM BOTTLE WASHER MACHINE) [facility] ESR (SEDIMENTATION RATE) 4 0 - 20 mm/Hr 05/22/2025 7:53 AM BOTTLE WASHER MACHINE [facility] Blood BLOOD SPECIMEN / Unknown Collection / Unknown 05/22/2025 7:12 AM BOTTLE WASHER MACHINE 05/22/2025 7:38 AM BOTTLE WASHER MACHINE Narrative [facility] - 05/22/2025 7:53 AM BOTTLE WASHER MACHINE Tube Lot: #[id number] Exp Date: 07/17/2026 QC1 LOT [id number] EXP.07/22/2025 QC2 LOT [id number] EXP.07/22/2025 us Kris Michele MD HEMATOLOGY ORDERABLES Mahi l Result Performing Organization Address City/[facility]/ZIP Co de Phone Number [facility] CLIA # [id number] [address] [place] [phone] * CORTISOL LEVEL (05/22/2025 7:12 AM BOTTLE WASHER MACHINE) CORTISOL LEVEL 23.2 ug/dL 05/22/2025 5:44 PM BOTTLE WASHER MACHINE [facility] Comment: Cortisol Reference Range Morning Hours 6-10 a.m. 6.0-18.4 ug/dL Afternoon Hours 4-8 p.m. 2.7-10.5 ug/dL Blood BLOOD SPECIMEN / Unknown Collection / Unknown 05/22/2025 7:12 AM BOTTLE WASHER MACHINE 05/22/2025 7:38 AM BOTTLE WASHER MACHINE Kris Michele MD CHEMISTRY ORDERABLES Final Result Performing Organization Address [facility] Co de Phone Number [facility] CLIA # [id number] [address] [place] [phone] * BASIC METABOLIC PANEL (05/22/2025 7:12 AM BOTTLE WASHER MACHINE) Pathologist [facility] SODIUM 141 136 - 145 mmol/L 05/22/2025 7:52 AM [facility] POTASSIUM 3.8 3.5 - 5.1 mmol/L 05/22/2025 7:52 AM [facility] CHLORIDE 106 98 - 107 mmol/L 05/22/2025 7:52 AM [facility] CO2 25 22 - 29 mmol/L 05/22/2025 7:52 AM [facility] CALCIUM 9.4 8.6 - 10.0 mg/dL 05/22/2025 7:52 AM [facility] BUN 10 6 - 20 mg/dL 05/22/2025 7:52 AM [facility] CREATININE 0.76 0.51 - 0.95 mg/dL 05/22/2025 7:52 AM [facility] GLUCOSE 98 74 - 99 mg/dL 05/22/2025 7:52 AM [facility] GFR >60 >=60 mL/min/1.7 3 sq meter 05/22/2025 7:52 AM [facility] Comment:eGFR calculated with 2020 CKD-EPI equation. Vegetarian diet, extremely high or low muscle mass, and may affect results. Cystatin C with Glomerular Filtration Rate is a suitable alternative for these patients. ANION GAP 10 5 - 20 mmol/L 05/22/2025 7:52 AM [facility] Blood BLOOD SPECIMEN / Unknown Collection / Unknown 05/22/2025 7:12 AM BOTTLE WASHER MACHINE 05/22/2025 7:38 AM BOTTLE WASHER MACHINE Kris Michele MD CHEMISTRY ORDERABLES Final Result [id number] [address] [place] [address] * (ABNORMAL) COVID-19 ANTIBODIES (05/21/2025 10:41 AM BOTTLE WASHER MACHINE) COVID-19 AB >2500.0(H ) <0.8 U/mL [facility] Comment: INDEX INTERPRETATION ----- <0.8 Negative > or = 0.8 Positive This test is intended to help identify individuals with antibodies to SARS-CoV-2 (COVID-19). The results of this semi-quantitative test should not be interpreted as an indication or degree of immunity or protection from reinfection. A test result that is 0.8 or more (Positive) means antibodies to SARS-CoV-2 were detected in the blood sample by the test. This could mean that the individual may have an immune response to a recent or prior infection with SARS-CoV-2. Positive results may occur after COVID-19 vaccination, but the clinical significance of a positive antibody result for individuals that have received a COVID-19 vaccine is unknown, and the performance of the test has not been established in COVID-19 vaccinees. False positive results for the test may occur due to cross-reactivity from pre-existing antibodies or other possible causes. A test result that is less than 0.8 (Negative) means that antibodies were not detected in the blood sample by the test. This could mean that the individual has not been previously infected with SARS-CoV-2. The clinical significance of a negative antibody result for individuals that have received a COVID-19 vaccine is unknown. The performance of the test has not been established in COVID-19 vaccinees. False negative results for the test may occur if the individual's antibodies have not reached a sufficient level for the test to be able to detect them. Antibodies can take up to two to three weeks (sometimes longer) to develop after someone is infected. How long antibodies to SARS-CoV-2 last after infection is not known. This test should not be used to diagnose an active SARS-CoV-2 infection. If an active infection is suspected, direct molecular or antigen testing for SARS -CoV-2 is recommended. Please review the Fact Sheets available for healthcare providers and patients using the following websites: https://www.[employer]/home/Covid-19/HCP/ antibody/fact-sheet7 https://www.[employer]/home/Covid-19/ Patients/antibody/fact-sheet7 Healthcare Providers: For additional information please refer to http://education.[employer]/ faq/INU716(This link is being provided for informational/educational purposes only.) This test has been authorized by the FDA under an Emergency Use Authorization(EUA)for use by authorized laboratories. The FDA authorized labeling is available on the [facility] website: www.[employer]. [employer]/Covid19. Test Performed at: [facility] [address] [address] [place] [address] Nolan Medel M.D.,PhD Blood 05/21/2025 10:4 1 AM BOTTLE WASHER MACHINE 05/22/2025 5:33 AM BOTTLE WASHER MACHINE Poly [employer] CHEMISTRY ORDERABLES Final Resul t [facility] [phone] [facility]/[place] [address] [address] [place] [address] * C-REACTIVE PROTEIN (05/13/2025 10:43 AM CDT) CRP <3.0 <5.0 mg/L 05/13/2025 11:34 AM CDT [facility] Blood BLOOD SPECIMEN / Unknown Venipuncture / Unknown 05/13/2025 10:43 AM CDT 05/13/2025 11:02 AM CDT Kris Michele MD CHEMISTRY ORDERABLES Final Result [facility] CLIA # [id number] [address] [place] [address] [phone] * TROPONIN (05/13/2025 10:43 AM CDT) TROPONIN T, 5TH GEN <6 <=10 ng/L 05/13/2025 11:34 AM CDT [facility] Blood BLOOD SPECIMEN / Unknown Venipuncture / Unknown 05/13/2025 10:43 AM CDT 05/13/2025 11:02 AM CDT Narrative [facility] - 05/13/2025 11:34 AM CDT Troponin Undetectable Kris Michele MD CHEMISTRY ORDERABLES Final Result [facility] CLIA # [id number] [address] [place] [address] * TSH (05/13/2025 10:43 AM CDT) TSH 3.81 0.27 - 4.20 uIU/mL 05/13/2025 11:34 AM CDT [facility] Blood BLOOD SPECIMEN / Unknown Venipuncture / Unknown 05/13/2025 10:43 AM CDT 05/13/2025 11:02 AM CDT us Kris Michele MD CHEMISTRY ORDERABLES Final Result [facility] CLIA # [id number] [address] [place] [phone] * DRUG SCREEN, URINE (05/13/2025 10:37 AM CDT) [facility] CANNABINOIDS QUAL, URINE Negative Negative 05/13/2025 11:20 AM CDT [facility] PCP QUAL, URINE Negative Negative 11:20 AM CDT [facility] COCAINE QUAL URINE Negative Negative 2024 11:20 AM CDT [facility] METHAMPHETAMINE QUAL, URINE Negative Negative 05/13/2025 11:20 AM CDT [facility] OPIATE QUAL, URINE Negative Negative 2024 11:20 AM CDT [facility] AMPHETAMINE QUAL, URINE Negative Negative 05/13/2025 11:20 AM CDT [facility] BENZODIAZEPINE QUAL, URINE Negative Negative 05/13/2025 11:20 AM CDT [facility] TRICYCLICS QUAL, URINE Negative Negative 05/13/2025 11:20 AM CDT [facility] METHADONE QUAL, URINE Negative Negative 05/13/2025 11:20 AM CDT [facility] BARBITURATE QUAL, URINE Negative Negative 05/13/2025 11:20 AM CDT [facility] OXYCODONE QUAL, URINE Negative Negative 05/13/2025 11:20 AM CDT [facility] Urine URINE SPECIMEN OBTAINED BY CLEAN CATCH PROCEDURE / Unknown Collection / Unknown 05/13/2025 10:37 AM CDT 05/13/2025 11:03 AM CDT Narrative [facility] - 05/13/2025 11:20 AM CDT This test is a qualitative screen. The presumptive positive results should not be used for legal purposes. If confirmation of results is desired, the lab must be contacted without delay. Drug Screening Threshold Amphetamines 500 ng/mL Barbiturates 200 ng/mL Benzodiazepines 150 ng/mL Cocaine Metabolites 150 ng/mL Methamphetamine 500 ng/mL Methadone 200 ng/mL Opiates 100 ng/mL Oxycodone 100 ng/mL Phencyclidine 25 ng/mL THC Cannabinoids 50 ng/mL Tricyclic Antidepressants 300 ng/mL us Kris Michele MD URINE ORDERABLES Final Res ult [facility] CLIA # [id number] [address] [place] [address] * (ABNORMAL) URINALYSIS WITH REFLEX MICROSCOPIC (05/13/2025 10:37 AM T) COLOR UA Yellow Pale to Dark Yellow 05/13/2025 11:09 AM [facility] CLARITY UA Clear Clear 05/13/2025 11:09 AM [facility] SPECIFIC GRAVITY UA 1.010 1.003 - 1.035 05/13/2025 11:09 AM [facility] PH UA 7.0 5.0 - 8.0 05/13/2025 11:09 AM [facility] LEUKOCYTE ESTERASE UA Negative Negative 05/13/2025 11:09 AM [facility] NITRITE UA Negative Negative 05/13/2025 11:09 AM [facility] PROTEIN UA Negative Negative 05/13/2025 11:09 AM [facility] GLUCOSE UA Negative Negative 05/13/2025 11:09 AM [facility] KETONES UA Negative Negative 05/13/2025 11:09 AM [facility] UROBILINOGEN UA 0.2 <2.0 mg/dL 11:09 AM [facility] BILIRUBIN UA Negative Negative 05/13/2025 11:09 AM [facility] BLOOD UA Trace(A) Negative 05/13/2025 11:09 AM [facility] Urine URINE SPECIMEN OBTAINED BY CLEAN CATCH PROCEDURE / Unknown Collection / Unknown 05/13/2025 10:37 AM CDT 05/13/2025 11:03 AM CDT us Kris Michele MD URINE ORDERABLES Final Res ult Performing Organization Address City/[facility]/ZIP Co de Phone Number [facility] CLIA # [id number] [address] [place] [address] [phone] * HCG QUALITATIVE, URINE (05/13/2025 10:37 AM CDT) HCG QUAL URINE Negative Negative 05/13/2025 11:10 AM CDT [facility] COLOR UA Yellow Pale to Dark Yellow 05/13/2025 11:10 AM CDT [facility] CLARITY UA Clear Clear 05/13/2025 11:10 AM CDT [facility] Urine URINE SPECIMEN OBTAINED BY CLEAN CATCH PROCEDURE / Unknown Collection / Unknown 05/13/2025 10:37 AM CDT 05/13/2025 11:03 AM CDT us Kris Michele MD URINE ORDERABLES Final Res ult Performing Organization Address City/[facility] Co de Phone Number [facility] CLIA # [id number] [address] [place] [phone] from Last [address] [place] [address] [employer]ALTH PLAN MEDICAID Advance Directives For more information, please contact: [phone] * Full Code (Latest Code Status on File) Date Activated Date Inactivated Comments 01/11/2023 12:11 PM 01/11/2023 3:59 PM * Full Code Date Activated Date Inactivated Comments 01/11/2023 9:16 AM 01/11/2023 12:11 PM * Full Code Date Activated Date Inactivated Comments 01/11/2023 9:09 AM 01/11/2023 9:16 AM Care Teams Construction Site Crossing Guard Relationship Specialty Start Date End Date Talita Gutiérrez MD [address] [phone] PCP - General Family Practice 01/10/24
--- OUTSIDE RECORDS SUMMARY | 2025-05-31 17:52 | XMS_ITS | Encounter Summary ---
Author Organization [facility] Address [address] [place] [address] Care Team Providers Care Spa Attendant Name Role Phone Juan Francisco Hernandez MD Primary Care Provider [phone] Encounter Details Date Type Department Care Team (Latest Contact Info) Description 08/11/2000 Outpatient [facility] Medicine [address] [phone] Aquilino Samuel MD [address] [phone] Acute upper respiratory infections of unspecified site (Primary Dx); Acute pharyngitis Social History Tobacco Use Types Packs/Day Years Used Date Smoking Tobacco: Never Assessed Comments Unknown Sex and Gender Information Value Date Recorded Sex Assigned at Not on file Legal Sex Female 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
--- OUTSIDE RECORDS SUMMARY | 2025-05-31 17:52 | XMS_ITS | Encounter Summary ---
Author Organization [facility] Address [address] [place] [address] Care Team Providers Care Counter Cutter Name Role Phone Juan Francisco Hernandez MD Primary Care Provider [phone] Encounter Details Date Type Department Care Team (Latest Contact Info) Description 06/05/2002 Outpatient Historical [facility] Family Medicine- [place] [address] [place] [phone] Roberto Brito DO NO ADDRESS ON FILE NAUSEA WITH VOMITING (Primary Dx); NONINFEC GASTROENTERIT NEC Social History Tobacco Use Types Packs/Day Years Used Date Smoking Tobacco: Never Assessed Comments Unknown Sex and Gender Information Value Date Recorded Sex Assigned at Not on file 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 [employer] Gender Identity Not on file Sexual Orientation Not on file documented as of this encounter Plan of Treatment Not on file documented as of this encounter Visit Diagnoses Diagnosis Nausea with vomiting- Primary Other and unspecified noninfectious gastroenteritis and colitis(558.9) Other and unspecified noninfectious gastroenteritis and colitis documented in this encounter Care Teams Counter Cutter Relationship Specialty Start Date End Date Juan Francisco Hernandez MD [address] [facility] [address] [place] [phone] PCP - General Family Practice 04/06/18 documented as of this encounter
--- OUTSIDE RECORDS SUMMARY | 2025-05-31 17:52 | XMS_ITS | Encounter Summary ---
Author Organization [facility] Address [address] [place] [address] Care Team Providers Care Head Sugar Reprocess Operator Name Role Phone Juan Francisco Hernandez MD Primary Care Provider [phone] Encounter Details Date Type Department Care Team (Latest Contact Info) Description 04/11/2001 Outpatient Historical [facility] Family Medicine- [place] [address] [place] [phone] Roberto Brito, NO ADDRESS ON FILE Dermatophytosis of unspecified site (Primary Dx) Social History Tobacco Use Types Packs/Day Years Used Date Smoking Tobacco: Never Assessed Comments Unknown Sex and Gender Information Value Date Recorded Sex Assigned at Not on file Legal 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
--- OUTSIDE RECORDS SUMMARY | 2025-05-31 17:52 | XMS_ITS | Encounter Summary ---
Author Organization [facility] Address [address] [place] [address] Care Team Providers Care Caustic Liquor Maker Name Role Phone Juan Francisco Hernandez MD Primary Care Provider +1 -[phone] Encounter Details Date Type Department Care Team (Latest Contact Info) Description 06/04/1999 Outpatient Historical [facility] Family Medicine [address] [phone] Sally Scott NO ADDRESS ON FILE Acute pharyngitis (Primary Dx) Social History Tobacco Use Types Packs/Day Years Used Date Smoking Tobacco: Never Assessed Comments Unknown Sex and Gender Information Value Date Recorded Sex Assigned at Not on file Legal 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
--- OUTSIDE RECORDS SUMMARY | 2025-05-31 17:52 | XMS_ITS | Encounter Summary ---
Author Organization [facility] Address [address] [place] [address] Care Team Providers Care Neurology Specialist Name Role Phone Juan Francisco Hernandez MD Primary Care Provider +1 -[phone] Encounter Details Date Type Department Care Team (Latest Contact Info) Description 09/21/2001 Outpatient Historical [facility] General Surgery [address] [address] [address] [place] [address] [place] [address] [facility] [address] [place] [address] POSTSURGICAL STATES NEC (Primary Dx) Social History Tobacco Use Types Packs/Day Years Used Date Smoking Tobacco: Never Assessed Comments Unknown Sex and Gender Information Value Date Recorded Sex Assigned at Not on file Legal Sex Female 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
--- OUTSIDE RECORDS SUMMARY | 2025-05-31 17:52 | XMS_ITS | Encounter Summary ---
Author Organization [facility] Address [address] [place] [address] Care Team Providers Care Inbound Customer Service Representative Name Role Phone Juan Francisco Hernandez MD Primary Care Provider +1 -[phone] Encounter Details Date Type Department Care Team (Latest Contact Info) Description 10/04/2001 Outpatient Historical [facility] Family Medicine- [place] [address] [place] [phone] Sarah Lee MD NO ADDRESS ON FILE ACUTE BRONCHITIS (Primary Dx); ACUTE SINUSITIS NOS Social History Tobacco Use Types Packs/Day Years Used Date Smoking Tobacco: Never Assessed Comments Unknown Sex and Gender Information Value Date Recorded Sex Assigned at Not on file Legal 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
--- OUTSIDE RECORDS SUMMARY | 2025-05-31 17:52 | XMS_ITS | Encounter Summary ---
Author Organization [facility] Address [address] [place] [facility] [place] [address] Care Team Providers Care Armature Inspector Name Role Phone Juan Francisco Hernandez MD Primary Care Provider +1 -[phone] Encounter Details Date Type Department Care Team (Latest Contact Info) Description 12/20/2001 Outpatient Historical [facility] Family Medicine- [place] [address] [place] [phone] Roberto Brito, NO ADDRESS ON FILE ABDOMINAL PAIN UNSPEC SITE (Primary Dx); STREP SORE THROAT; HEMATURIA Social History Tobacco Use Types Packs/Day Years Used Date Smoking Tobacco: Never Assessed Comments Unknown Sex and Gender Information Value Date Recorded Sex Assigned at Not on file Legal Sex Female 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
--- OUTSIDE RECORDS SUMMARY | 2025-05-31 17:52 | XMS_ITS | Encounter Summary ---
Author Organization [facility] Address [address] [place] [address] Care Team Providers Care Board Mixer Tender Name Role Phone Juan Francisco Hernandez MD Primary Care Provider +1 -[phone] Encounter Details Date Type Department Care Team (Latest Contact Info) Description 06/19/2001 Outpatient Historical [facility] Family Medicine- [place] [address] [place] [phone] Sarah Lee MD NO ADDRESS ON FILE UNSPECIFIED VIRAL INFECTION (Primary Dx) Social History Tobacco Use Types Packs/Day Years Used Date Smoking Tobacco: Never Assessed Comments Unknown Sex and Gender Information Value Date Recorded Sex Assigned at Not on file Legal Sex Female 2:59 AM DOOR SLINGER Gender Identity Not on file Sexual Orientation Not on file documented as of this encounter Plan of Treatment Not on file documented as of this encounter Visit Diagnoses Diagnosis Unspecified viral infection, in conditions classified elsewhere and of unspecified site- Primary documented in this encounter Care Teams Board Mixer Tender Relationship Specialty Start Date End Date Juan Francisco Hernandez MD [address] [facility] [address] [place] [address] PCP - General Family Practice 04/06/18 documented as of this encounter
--- OUTSIDE RECORDS SUMMARY | 2025-05-31 17:52 | XMS_ITS | Encounter Summary ---
Author Organization [facility] Address [address] [place] [address] Care Team Providers Care Security Solutions Architect Name Role Phone Juan Francisco Hernandez MD Primary Care Provider +1 -[phone] Encounter Details Date Type Department Care Team (Latest Contact Info) Description 05/01/2002 Outpatient Historical [facility] Family Medicine- [place] [address] [place] [address] Aquilino Samuel MD [address] 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
--- OUTSIDE RECORDS SUMMARY | 2025-05-31 17:52 | XMS_ITS | Encounter Summary ---
Author Organization [facility] Address [address] [place] [address] Care Team Providers Care Manager Technical Support Name Role Phone Juan Francisco Hernandez MD Primary Care Provider +1 -[phone] Encounter Details Date Type Department Care Team (Latest Contact Info) Description 07/17/2002 Outpatient Historical [facility] Family Medicine- [place] [address] [place] [phone] Roberto Brito, NO ADDRESS ON FILE ACUTE BRONCHITIS (Primary Dx); ACNE NEC Social History Tobacco Use Types Packs/Day Years Used Date Smoking Tobacco: Never Assessed Comments Unknown Sex and Gender Information Value Date Recorded Sex Assigned at Not on file Legal Sex Female 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
--- OUTSIDE RECORDS SUMMARY | 2025-05-31 17:53 | XMS_ITS | Encounter Summary ---
Author Organization [facility] Address [address] [place] [address] Care Team Providers Care Primer Boxer Name Role Phone Juan Francisco Hernandez MD Primary Care Provider +1 -[phone] Encounter Details Date Type Department Care Team (Latest Contact Info) Description 09/13/2001 Outpatient Historical [facility] General Surgery [address] [address] [address] [place] [address] [place] [address] [facility] [address] [place] [address] UNCERTAIN BEHAV NEOPL SKIN (Primary Dx) Social History Tobacco Use Types Packs/Day Years Used Date Smoking Tobacco: Never Assessed Comments Unknown Sex and Gender Information Value Date Recorded Sex Assigned at Not on file Legal Sex Female 2:59 AM 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
--- OUTSIDE RECORDS SUMMARY | 2025-05-31 17:53 | XMS_ITS | Encounter Summary ---
Author Organization [facility] Address [address] [place] [address] Care Team Providers Care Backhoe Operator Name Role Phone Juan Francisco Hernandez MD Primary Care Provider +1 [phone] Encounter Details Date Type Department Care Team (Latest Contact Info) Description 04/05/2003 Outpatient Historical [facility] Family Medicine- [place] [address] [place] [phone] Sarah Lee MD NO ADDRESS ON FILE ACUTE URI NOS (Primary Dx); ACUTE PHARYNGITIS Social History Tobacco Use Types Packs/Day Years Used Date Smoking Tobacco: Never Assessed Comments Unknown Sex and Gender Information Value Date Recorded Sex Assigned at Not on file Legal Sex Female 2:59 AM BODY MASKER Gender Identity Not on file Sexual Orientation Not on file documented as of this encounter Plan of Treatment Not on file documented as of this encounter Visit Diagnoses Diagnosis Acute upper respiratory infections of unspecified site- Primary Acute pharyngitis documented in this encounter Care Teams Backhoe Operator Relationship Specialty Start Date End Date Juan Francisco Hernandez MD [address] [facility] [address] [place] [address] PCP - General Family Practice 04/06/18 documented as of this encounter
--- OUTSIDE RECORDS SUMMARY | 2025-05-31 17:53 | XMS_ITS | Encounter Summary ---
Author Organization [facility] Address [address] [place] [address] Care Team Providers Care Laborer Name Role Phone Juan Francisco Hernandez MD Primary Care Provider +1 -[phone] Encounter Details Date Type Department Care Team (Latest Contact Info) Description 07/30/2002 Outpatient Historical [facility] Family Medicine- [place] [address] [place] [phone] Sarah Lee MD NO ADDRESS ON FILE ACUTE URI NOS (Primary Dx) Social History Tobacco Use Types Packs/Day Years Used Date Smoking Tobacco: Never Assessed Comments Unknown Sex and Gender Information Value Date Recorded Sex Assigned at Not on file Legal Sex Female 2:59 AM 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
--- OUTSIDE RECORDS SUMMARY | 2025-05-31 17:53 | XMS_ITS | Encounter Summary ---
Author Organization [facility] Address [address] [place] [address] Care Team Providers Care Inside Sales Consultant Name Role Phone Juan Francisco Hernandez MD Primary Care Provider +1 -[phone] Encounter Details Date Type Department Care Team (Latest Contact Info) Description 10/06/2004 Outpatient Historical [facility] Medicine- [address] [phone] Mohamud Quinteros PA NO ADDRESS ON FILE ACUTE URI NOS (Primary Dx) Social History Tobacco Use Types Packs/Day Years Used Date Smoking Tobacco: Never Assessed Comments Unknown Sex and Gender Information Value Date Recorded Sex Assigned at Not on file Legal Sex Female 2:59 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
--- OUTSIDE RECORDS SUMMARY | 2025-05-31 17:53 | XMS_ITS | Encounter Summary ---
Author Organization [facility] Address [address] [place] [address] Care Team Providers Care Warehouse Traffic Supervisor Name Role Phone Juan Francisco Hernandez MD Primary Care Provider +1 -[phone] Encounter Details Date Type Department Care Team (Latest Contact Info) Description 10/06/2005 Outpatient Historical [facility] Family Medicine- [place] [address] [place] [phone] Ryley Dias NP NO ADDRESS ON FILE Acute Sinusitis, Unspecified (Primary Dx); Need for Prophylactic Vaccination with Tetanus Toxoid Alone Social History Tobacco Use Types Packs/Day Years Used Date Smoking Tobacco: Never Assessed Comments Unknown Sex and Gender Information Value Date Recorded Sex Assigned at Not on file Legal Sex Female 2: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
--- OUTSIDE RECORDS SUMMARY | 2025-05-31 17:53 | XMS_ITS | Encounter Summary ---
Author Organization [facility] Address [address] [facility] [place] [address] Care Team Providers Care Coat Hanger Shaper Machine Operator Name Role Phone Juan Francisco Hernandez MD Primary Care Provider +1 -[phone] Encounter Details Date Type Department Care Team (Latest Contact Info) Description 04/07/2005 Outpatient Historical [facility] Family Medicine- [place] [address] [place] [phone] Ryley Dias NP NO ADDRESS ON FILE ACUTE SINUSITIS NOS (Primary Dx); URIN TRACT INFECTION NOS; ABDOMINAL PAIN UNSPEC SITE Social History Tobacco Use Types Packs/Day Years Used Date Smoking Tobacco: Never Assessed Comments Unknown Sex and Gender Information Value Date Recorded Sex Assigned at Not on file Legal 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
--- OUTSIDE RECORDS SUMMARY | 2025-05-31 17:53 | XMS_ITS | Encounter Summary ---
Author Organization [facility] Address [address] [place] [address] Care Team Providers Care Snaker Driving Horses Name Role Phone Juan Francisco Hernandez MD Primary Care Provider +1 -[phone] Encounter Details Date Type Department Care Team (Latest Contact Info) Description 04/28/2006 Outpatient [facility] Medicine [address] [phone] Sarah Lee MD NO ADDRESS ON FILE Routine Gynecological Examination (Primary Dx) Social History Tobacco Use Types Packs/Day Years Used Date Smoking Tobacco: Never Assessed Comments Unknown Sex and Gender Information Value Date Recorded Sex Assigned at Not on file Legal Sex Female 2:59 AM SHERIFFS DETECTIVE Gender Identity Not on file Sexual Orientation Not on file documented as of this encounter Plan of Treatment Not on file documented as of this encounter Visit Diagnoses Diagnosis Routine gynecological examination- Primary documented in this encounter Care Teams Snaker Driving Horses Relationship Specialty Start Date End Date Juan Francisco Henrandez MD [address] [phone] PCP - General Family Practice 04/06/18 documented as of this encounter
--- OUTSIDE RECORDS SUMMARY | 2025-05-31 17:53 | XMS_ITS | Encounter Summary ---
Author Organization [facility] Address [address] [place] [facility] [place] [address] Care Team Providers Care Bench Grinder Name Role Phone Juan Francisco Hernandez MD Primary Care Provider +1 -[phone] Encounter Details Date Type Department Care Team (Latest Contact Info) Description 07/17/2001 Outpatient Historical [facility] Family Medicine- [place] [address] [place] [phone] Sarah Lee MD NO ADDRESS ON FILE MUSCSKEL SYMPT LIMB NEC (Primary Dx) Social History Tobacco Use Types Packs/Day Years Used Date Smoking Tobacco: Never Assessed Comments Unknown Sex and Gender Information Value Date Recorded Sex Assigned at Not on file Legal Sex Female 2:59 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
--- OUTSIDE RECORDS SUMMARY | 2025-05-31 17:54 | XMS_ITS | Encounter Summary ---
Author Organization [facility] Address [address] [place] [address] Care Team Providers Care Computer Network Engineer Name Role Phone Talita Gutiérrez MD Primary Care Provider +1- [phone] Encounter Details Date Type Department Care Team (Late st Contact Info) Description 05/23/2025 Results Follow-Up [facility] Hospitalists [address] [address] Carlita Soto, MANAGER HOME [address] [facility] [address] [place] [address] CORTISOL LEVEL, PROCALCITONIN, PROGESTERONE, Additional followed-up results: 3 Social History Tobacco Use Types Packs/Day Years [...] about transportation for future doctor visits, pick up worker medication, etc.? 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
--- OUTSIDE RECORDS SUMMARY | 2025-05-31 17:54 | XMS_ITS | Encounter Summary ---
Author Organization [facility] Address [address] [place] [address] Care Team Providers Care Drain Tile Machine Operator Name Role Phone Juan Francisco Hernandez MD Primary Care Provider +1 -[phone] Encounter Details Date Type Department Care Team (Latest Contact Info) Description 12/24/2002 Outpatient [facility] Dermatology- [facility] [address] [place] [phone] Senthil Villafuerte MD NO ADDRESS ON FILE ACNE NEC (Primary Dx) Social History Tobacco Use Types Packs/Day Years Used Date Smoking Tobacco: Never Assessed Comments Unknown Sex and Gender Information Value Date Recorded Sex Assigned at Not on file Legal Sex Female 2:59 AM UNDRAPED ARTIST MODEL Gender Identity Not on file Sexual Orientation Not on file documented as of this encounter Plan of Treatment Not on file documented as of this encounter Visit Diagnoses Diagnosis Other acne- Primary documented in this encounter Care Teams Drain Tile Machine Operator Relationship Specialty Start Date End Date Juan Francisco Hernandez MD [address] [facility] [address] [place] [address] PCP - General Family Practice 04/06/18 documented as of this encounter
--- OUTSIDE RECORDS SUMMARY | 2025-05-31 17:54 | XMS_ITS | Encounter Summary ---
Author Organization [facility] Address [address] [place] [address] Care Team Providers Care Butcher Assistant Name Role Phone Juan Francisco Hernandez MD Primary Care Provider [phone] Encounter Details Date Type Department Care Team (Latest Contact Info) Description 07/31/[address] [facility] Family Medicine- [address] [place] [id number] Roberto Brito, NO ADDRESS ON FILE MYCOPLASMA/PPLO/EATO N PNEUMONIA (Primary Dx); ACUTE BRONCHITIS Social History Tobacco Use Types Packs/Day Years Used Date Smoking Tobacco: Never Assessed Comments Unknown Sex and Gender Information Value Date Recorded Sex Assigned at Not on file Legal Sex Female 2:59 AM HIDE OR SKIN BUFFER Gender Identity Not on file Sexual Orientation Not on file documented as of this encounter Plan of Treatment Not on file documented as of this encounter Visit Diagnoses Diagnosis Pneumonia due to Mycoplasma pneumoniae- Primary Acute bronchitis documented in this encounter Care Teams Butcher Assistant Relationship Specialty Start Date End Date Juan Francisco Hernandez MD [address] [facility] [address] [place] [address] PCP - General Family Practice 04/06/18 documented as of this encounter
--- OUTSIDE RECORDS SUMMARY | 2025-05-31 17:54 | XMS_ITS | Encounter Summary ---
Author Organization [facility] Address [address] [place] [address] Care Team Providers Care Supervisor Modern Languages Name Role Phone Juan Francisco Hernandez MD Primary Care Provider [phone] Encounter Details Date Type Department Care Team (Latest Contact Info) Description 11/21/2002 Outpatient Historical [facility] Family Medicine- [place] [address] [place] [phone] Aquilino Samuel MD [address] [facility] [address] [place] [phone] ACNE NEC (Primary Dx) Social History Tobacco Use Types Packs/Day Years Used Date Smoking Tobacco: Never Assessed Comments Unknown Sex and Gender Information Value Date Recorded Sex Assigned at Not on file Legal Sex Female 2:59 AM [employer] Gender Identity Not on file Sexual Orientation Not on file documented as of this encounter Plan of Treatment Not on file documented as of this encounter Visit Diagnoses Diagnosis Other acne- Primary documented in this encounter Care Teams Supervisor Modern Languages Relationship Specialty Start Date End Date Juan Francisco Hernandez MD [address] [facility] [address] [place] [id number] PCP - General Family Practice 04/06/18 documented as of this encounter
[2025-05-31 19:09] VITALS: BP 164/98; PULSE 98; RESP 16; O2SAT 99
--- NOTE | 2025-05-31 19:34 | USR_ITS ---
PROCEDURE INFORMATION: Exam: US Duplex Left Lower Extremity Veins, Limited Exam date and time: 05/31/2025 8:41 PM Age: 34 years old Clinical indication: Leg pain and swelling TECHNIQUE: Imaging protocol: Real-time duplex ultrasound of the left extremity with 2-D muse scale, color Doppler flow and spectral waveform analysis including responses to compression and other maneuvers (when performed) with image documentation. Limited exam focused on the left lower extremity veins. COMPARISON: US transvaginal [id number] 06/19/2024 11:27 AM FINDINGS: Left deep veins: Unremarkable. The common femoral, femoral, proximal profunda femoral and popliteal veins are patent without thrombus. Normal Doppler waveforms. Normal compressibility and/or augmentation response. Superficial veins: Greater saphenous vein at the saphenofemoral junction is patent without thrombus. Soft tissues: Unremarkable. US/CV venous duplex [facility] [id number] IMPRESSION: No evidence of deep vein thrombosis in the left lower extremity.
--- NOTE | 2025-05-31 19:34 | XRR_ITS ---
PROCEDURE INFORMATION: Exam: XR Left Knee Exam date and time: 05/31/2025 7:41 PM Age: 34 years old Clinical indication: Left knee pain, no known injury TECHNIQUE: Imaging protocol: Radiologic exam of the left knee. Views: 3 views. COMPARISON: No relevant prior studies available. FINDINGS: Bones/joints: No acute fracture. Normal joint alignment. No large joint effusion. Probable bone island in the distal femur. Soft tissues: Normal. XR/XR knee LT 3V* [id number] IMPRESSION: No acute osseous abnormality.
--- NOTE | 2025-05-31 19:34 | XRR_ITS ---
PROCEDURE INFORMATION: Exam: XR Chest Exam date and time: 05/31/2025 7:41 PM Age: 34 years old Clinical indication: Shortness of breath, external heart monitor TECHNIQUE: Imaging protocol: Radiologic exam of the chest. Views: 1 view. COMPARISON: No relevant prior studies available. FINDINGS: Lungs: Unremarkable. No consolidation. Pleural spaces: No pneumothorax. No pleural effusion. Heart/Mediastinum: Cardiac monitoring device projects over the left chest. The cardiac silhouette is within normal limits. Bones/joints: Unremarkable. XR/XR chest 1V portable [id number] IMPRESSION: No acute cardiopulmonary abnormality.
--- NOTE | 2025-05-31 19:42 | ECG_ITS ---
[facility] Date: 2025-05[facility]31 Pat Name: Marti Pozo Department: Room: Gender: Female Rubber Thread Spooler: : 1990 Requested By: Toni Rizvi Order Number: [id number] Jaziel MD: Rom Page M.D. Measurements Intervals [place] Rate: 81 P: 60 RI: 138 QRS: 56 QRSD: 80 T: 62 QT: 344 QTc: 401 Interpretive Statements SINUS RHYTHM Electronically Signed On 05-31-2025 19:43:43 FOOD SERVICE KITCHEN SUPERVISOR by Rom Page M.D. [email or web address]
[2025-05-31 19:56] LABS: Hematocrit 43.4 % (36-47); Hemoglobin 15.00 g/dL (11.27-16.99); Mean Corpuscular HGB Conc 34.6 g/dL (30-55); Mean Corpuscular Hemoglobin 32.5 pg (27-33); Mean Corpuscular Volume 93.9 fl (85-98); Nucleated Red Blood Cells % 0 %; Platelet Count 199 10^3/cmm (157-399); Red Blood Count 4.62 10^6/uL (3.85-5.65); White Blood Count 9.30 10^3/uL (3.29-11.43)
--- NOTE | 2025-05-31 20:03 | ED_ITS ---
HPI - Extremity Problem 2 General: Chief complaint: Extremity Problem,Nontraumatic Stated complaint: left leg pain Time Seen by Provider: 05/31/25 18:58 History of Present Illness: Patient is a 34-year-old female who presents with persistent symptoms following a COVID-19 infection approximately one month ago. She reports that she initially did not know she had COVID until antibody testing confirmed the diagnosis. The patient states she began to feel better briefly but then experienced a syncopal episode while out with her family, requiring EMS transport. Since then, she has been experiencing persistent symptoms including fevers for three weeks, dizziness, heart palpitations, fatigue, and anxiety. 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 Recently, she developed pain behind her left knee with burning sensations up and down her calf, prompting concern for DVT. She also notes waking up last night with tensing of her hands and feet, along with kidney and heart pain. The patient reports significant fatigue that has prevented her from working for three weeks, with intermittent improvement followed by setbacks. She has lost 6- 7 pounds due to nausea and poor appetite. She is currently wearing a heart monitor (placed Tuesday, about a week ago) for a two-week period. She also mentions left breast pain, noting she has breast implants placed over a year ago but has not had a mammogram. Related Data Previous Rx's ?Medication ?Instructions ?Recorded aripiprazole 5 mg tablet (Abilify) 5 mg PO DAILY #90 t abs 09/24/24 fluoxetine 10 mg capsule (Prozac) 10 mg PO DAILY #90 c aps 09/24/24 phenazopyridine 100 mg tablet 100 mg PO TID #90 tabs 0 10/01/24 (Pyridium) solifenacin 10 mg tablet (Vesicare) 10 mg PO DAILY #30 tabs 10/01/24 Allergies Allergy/AdvReac Type Severity Reaction Status Date / Time No Known Allergies Allergy Verified 10/29/24 13:00 [facility] ED 2 PFS: Medical History Venous reflux Unilateral edema of lower extremity Right foot injury Surgical History History of 3 sections Family History Mother Hypertension Grandmother Thyroid disease Social History Smoking and tobacco/nicotine status: current every day tobacco/nicotine user cigarettes Alcohol intake: never Substance/Drug Use: never Physical Exam 2 Const: COMMON NORMALS: no acute distress GENERAL APPEARANCE: cooperative; not ill appearing and not frail appearing HENMT: COMMON NORMALS: normocephalic, atraumatic and Normal external nose present HEAD & SCALP: normocephalic and atraumatic FACE & SINUS: normal facial exam and face symmetric NOSE: Normal external nose present Eye: COMMON NORMALS: Equal, round and reactive pupils present and EOMs intact bilaterally PUPIL: Yes Equal, round and reactive pupils present Neck/C-Spine: GENERAL: Yes trachea midline Chest: CHEST: Yes Symmetrical chest wall rise Resp: COMMON NORMALS: normal respiratory effort, No retractions, No use of accessory muscles and clear to auscultation bilaterally AUSCULTATION: clear to auscultation bilaterally Cardio: COMMON NORMALS: regular rate and regular rhythm RATE: regular rate RHYTHM: regular rhythm GI: COMMON NORMALS: Normal to inspection, nondistended, normoactive bowel sounds present Extremity: COMMON NORMALS: no pedal edema Neuro: JHON COMA SCALE: document GCS findings Jhon coma scale eye opening: Spontaneous [place] coma scale verbal response: Orientated [place] coma scale motor response: Obey commands Jhon coma scale total score: 15 S ENSORY EXAM: Yes extremities (intact) Psych: COMMON NORMALS: speech normal SPEECH: Yes normal speech Skin: COMMON NORMALS: no rashes or lesions noted GENERAL SKIN EXAM: no rashes or lesions noted Course 2 Vital Signs: Vital signs: Vital Signs Temperature 98.1 F 05/31/25 17:51 Pulse Rate 77 05/31/25 22:28 Respiratory Rate 16 05/31/25 22:28 Blood Pressure 124/81 05/31/25 22:28 Pulse Oximetry 95 05/31/25 22:28 Oxygen Delivery Me thod Room Air 05/31/25 17:51 MDM - Extremity (Nontraumatic) Medical Decision Making 34-year-old female with apparent COVID a few weeks ago with ongoing symptoms of fatigue, facial flushing, palpitations, syncope and near syncope. She also has left posterior knee pain/leg pain since last night. She is concerned about DVT. Vitals are stable here. She was initially tachycardic, but normalized. EKG is normal. CBC is normal. BMP is normal. CRP is 3. TSH and free T4 were normal as well. She is not . No respiratory viruses are detected acutely. Urinalysis is negative for infection. X-ray of the knee is negative. Venous duplex of the left lower extremity is negative. Chest x-ray is negative. She is stable for discharge. She will continue her Holter monitor. We will ask case management to set her up an appointment for an outpatient echocardiogram. Return for any new or worsening symptoms. Outpatient follow-up. Lab Data 05/31/25 19:45 05/31/25 19:45 Radiology Impressions Chest X-Ray 05/31/25 19:34 IMPRESSION: No acute cardiopulmonary abnormality. Knee X-Ray 05/31/25 19:34 IMPRESSION: No acute osseous abnormality. Venous Duplex 05/31/25 19:34 IMPRESSION: No evidence of deep vein thrombosis in the left lower extremity. Laboratory Results WBC 9.30 10^3/uL (3.29-11.43) 05/31/25 19:45 RBC 4.62 10^6/uL (3.85-5.65) 05/31/25 19:45 Hgb 15.00 g/dL (11.27-16.99) 05/31/25 19:45 Hct 43.4 % (36-47) 05/31/25 19:45 MCV 93.9 fl (85-98) 05/31/25 19:45 MCH 32.5 pg (27-33) 05/31/25 19:45 MCHC 34.6 g/dL (30-55) 05/31/25 19:45 RDW 13.1 % (12.1-15.1) 05/31/25 19:45 Plt Count 199 10^3/cmm (157-399) 05/31/25 19:45 MPV 11.3 fL (7.4-10.4) H 05/31/25 19:45 Neut % (Auto) 67.2 % 05/31/25 19:45 Lymph % (Auto) 24.0 % 05/31/25 19:45 Patrick % (Auto) 6.8 % 05/31/25 19:45 Eos % (Auto) 0.9 % 05/31/25 19:45 Baso % (Auto) 0.8 % 05/31/25 19:45 Neut # (Auto) 6.26 10^3/uL (1.8-7.7) 05/31/25 19:45 Lymph # (Auto) 2.2 10^3/uL (0.8-4.8) 05/31/25 19:45 Patrick # (Auto) 0.6 10^3/uL (0.2-0.9) 05/31/25 19:45 Eos # (Auto) 0.1 10^3/uL (0.0-0.8) 05/31/25 19:45 Baso # (Auto) 0.1 10^3/uL (0.0-0.1) 05/31/25 19:45 Nucleated RBC % (auto) 0 % 05/31/25 19:45 Nucleated RBCs # 0.0 /100WBC 05/31/25 19:45 Sodium 141 mmol/L (136-145) 05/31/25 19:45 Potassium 4.3 mmol/L (3.5-5.1) 05/31/25 19:45 Chloride 106 mmol/L (98-107) 05/31/25 19:45 Carbon Dioxide 24 mmol/L (22-29) 05/31/25 19:45 Anion Gap 15.3 (5-19) 05/31/25 19:45 BUN 12 mg/dL (6-20) 05/31/25 19:45 Creatinine 0.5 mg/dL (0.5-0.9) 05/31/25 19:45 GFR Calculation 141.2 mL/min (90-130) H 05/31/25 19:45 Glucose 100 mg/dL (65-115) 05/31/25 19:45 Calculated Osmolality 292 mOsm/kg (285-295) 05/31/25 19:45 Calcium 9.3 mg/dL (8.5-10.5) 05/31/25 19:45 Phosphorus 3.9 mg/dL (2.5-4.5) 05/31/25 19:45 Magnesium 2.1 mg/dL (1.7-2.3) 05/31/25 19:45 Total Bilirubin 0.3 mg/dL (0.15-1.2) 05/31/25 19:45 AST 10 U/L (0-32) 05/31/25 19:45 ALT 8 U/L (0-33) 05/31/25 19:45 Alkaline Phosphatase 46 U/L (35-105) 05/31/25 19:45 C-Reactive Protein 3.0 mg/L (0.0-4.9) 05/31/25 19:45 Total Protein 7.2 g/dL (6.6-8.7) 05/31/25 19:45 Albumin 4.6 g/dL (3.5-5.2) 05/31/25 19:45 Globulin 2.6 g/dL (1.3-4.6) 05/31/25 19:45 TSH 1.34 uIU/mL (0.27-4.20) 05/31/25 19:45 Free T4 1.61 ng/dL (0.82-1.77) 05/31/25 19:45 HCG, Qual Negative (Negative) 05/31/25 19:45 Urine Color Yellow (Yellow) 05/31/25 19:52 Urine Appearance Clear (CLEAR) 05/31/25 19:52 Urine pH 6.5 (5-7) 05/31/25 19:52 Ur Specific Reading 1.009 (1.005-1.030) 05/31/25 19:52 Urine Protein Negative (Negative) 05/31/25 19:52 Urine Glucose (UA) Negative (Normal) 05/31/25 19:52 Urine Ketones Negative (Negative) 05/31/25 19:52 Urine Blood 1+ (Negative) A 05/31/25 19:52 Urine Nitrate Negative (Negative) 05/31/25 19:52 Urine Bilirubin Negative (Negative) 05/31/25 19:52 Urine Urobilinogen 0.2 mg/dL (Negative) 05/31/25 19:52 Ur Leukocyte Esterase Negative (Negative) 05/31/25 19:52 Urine RBC 6-10 /hpf (0-2) 05/31/25 19:52 Urine WBC 0-5 /hpf (0-5) 05/31/25 19:52 Ur Squamous Epith Cells 0-5 /hpf (0-5) 05/31/25 19:52 Amorphous Sediment Not Reportable 05/31/25 19:52 Urine Bacteria None seen /hpf (NONE) 05/31/25 19:52 Hyaline Casts 0.40 /lpf 05/31/25 19:52 Adenovirus (PCR) Not detected (NOT DETECT) 05/31/25 19:40 C. pneumoniae DNA (PCR) Not detected (NOT DETECT) 05/31/25 19:40 Coronavirus 229E (PCR) Not detected (NOT DETECT) 05/31/25 19:40 Human Metapneumovir PCR Not detected (NOT DETECT) 05/31/25 19:40 Influenza A (H1) PCR Not detected (NOT DETECT) 05/31/25 19:40 Influ A (H1/09) PCR Not detected (NOT DETECT) 05/31/25 19:40 Influenza A (H3) PCR Not detected (NOT DETECT) 05/31/25 19:40 Influenza Type A (PCR) Not detected (NOT DETECT) 05/31/25 19:40 Influenza Type B (PCR) Not detected (NOT DETECT) 05/31/25 19:40 M. pneumoniae (PCR) Not detected (NOT DETECT) 05/31/25 19:40 Parainfluenza 1 (PCR) Not detected (NOT DETECT) 05/31/25 19:40 Parainfluenza 2 (PCR) Not detected (NOT DETECT) 05/31/25 19:40 Parainfluenza 3 (PCR) Not detected (NOT DETECT) 05/31/25 19:40 Parainfluenza 4 (PCR) Not detected (NOT DETECT) 05/31/25 19:40 RSV Type A (PCR) Not detected (NOT DETECT) 05/31/25 19:40 RSV Type B (PCR) Not detected (NOT DETECT) 05/31/25 19:40 Entero/Rhino (PCR) Not detected (NOT DETECT) 05/31/25 19:40 SARS-CoV-2 (PCR) Not detected (NOT DETECT) 05/31/25 19:40 All radiology interpretation(s) finalized by discharge Discharge Plan Discharge Patient Disposition: Home Clinical Impression: Heart palpitations Acute leg pain Qualifiers: Laterality: left Qualified Code(s): M79.605 - Pain in left leg Condition: Stable Prescriptions: No Action solifenacin [Vesicare] 10 mg tablet 10 mg PO DAILY Qty: 30 3RF phenazopyridine [Pyridium] 100 mg tablet 100 mg PO TID Qty: 90 3RF aripiprazole [Abilify] 5 mg tablet 5 mg PO DAILY Qty: 90 0RF Rx Instructions: take one tab daily fluoxetine [Prozac] 10 mg capsule 10 mg PO DAILY Qty: 90 0RF Rx Instructions: take 1 capsule daily Discharge Orders: Discharge ED (Routine); Ordered 05/31/25 Ordered By: Toni Wood Patient Instructions: Heart Palpitations (ED), Leg Pain (ED), Opioid Safety, Pain Management, Patient Portal & Monica Instructions Activity Restrictions/Additional Instructions: Case management will contact you regarding setting up an outpatient echocardiogram of your heart. If you do not hear from them by midweek next week, you may call [phone] and asked for the ER pillowcase turner during normal business hours. Take your blood pressure twice daily. Write numbers down for your practitioner. Follow-up with her at some point next week. Return for any problems. Print Language: Ethiopian Coding Level of Care Code ED Child Development Instructor for Naomy Somers
[2025-05-31 20:06] LABS: HCG, Serum Qual Negative (Negative)
[2025-05-31 20:08] LABS: Glucose Urine UA Negative (Normal); Nitrate Urine Negative (Negative); Specific Gravity, Urine 1.009 (1.005-1.030)
[2025-05-31 20:13] LABS: Add Urine Microscopic? YES
[2025-05-31 20:14] LABS: Alanine Aminotransferase 8 U/L (0-33); Albumin Level 4.6 g/dL (3.5-5.2); Alkaline Phosphatase 46 U/L (35-105); Anion Gap 15.3 (5-19); Aspartate Amino Transferase 10 U/L (0-32); Blood Urea Nitrogen 12 mg/dL (6-20); Calcium 9.3 mg/dL (8.5-10.5); Carbon Dioxide 24 mmol/L (22-29); Chloride 106 mmol/L (98-107); Globulin 2.6 g/dL (1.3-4.6); Glucose 100 mg/dL (65-115); Magnesium 2.1 mg/dL (1.7-2.3); Osmolality Calculated 292 mOsm/kg (285-295); Potassium 4.3 mmol/L (3.5-5.1); Sodium 141 mmol/L (136-145); Total Protein 7.2 g/dL (6.6-8.7)
[2025-05-31 20:34] VITALS: BP 138/94; PULSE 89; RESP 16; O2SAT 98
[2025-05-31 21:32] VITALS: BP 142/77; PULSE 84; RESP 16; O2SAT 98
[2025-05-31 21:44] LABS: Coronavirus 229E,HKU1,NL63,OC4 Not Detected (NOT DETECT); Parainfluenza Virus Type 1 Not Detected (NOT DETECT); Parainfluenza Virus Type 2 Not Detected (NOT DETECT); Parainfluenza Virus Type 3 Not Detected (NOT DETECT); Parainfluenza Virus Type 4 Not Detected (NOT DETECT); SARS-COV-2 Not Detected (NOT DETECT)
[2025-05-31 22:28] VITALS: BP 124/81; PULSE 77; RESP 16; O2SAT 95
[2025-05-31 23:29] LABS: Free T4 Free Thyroxine 1.61 ng/dL (0.82-1.77); Thyroid Stimulating Hormone 1.34 uIU/mL (0.27-4.20)
--- NOTE | 2025-06-03 10:07 | DCPLANNER ---
faxed outpatient echo to scheduling
== END 2025-05-31 22:27 | disposition home or self-care (01) ==
PROVIDERS: Emergency Provider Emergency Medicine
DX: R00.2 Palpitations (principal); M79.605 Pain in left leg; Z11.52 Encounter for screening for COVID-19; F17.210 Nicotine dependence, cigarettes, uncomplicated
CPT/HCPCS: 36415; 71045; 73562; 80053; 81001; 83735; 84100; 84439; 84443; 84703; 85025; 86140; 87486; 87581; 87633; 93005; 93971; 99285; J9999